=== PATIENT | female | born 1955 | race American Indian/Alaskan Native ===

== ENCOUNTER 2017-04-17 07:49 | Outpatient (CLI) | payer MEDICARE ==
[2017-04-17] MEDS ORDERED: PROVENTIL IH ONE (08:02)
[2017-04-17 09:13] LABS: ISTAT Base Excess -2; ISTAT DEVICE 0; ISTAT HCO3 22.6; ISTAT PCO2 36.7 (35-45); ISTAT PH 7.397 (7.35-7.45); ISTAT PO2 69 (80-105); ISTAT SO2 93; ISTAT TCO2 24
--- NOTE | 2017-04-19 06:23 | Pulmonary Function Test ---
FVC of 1.86 L or 75%, FEV1 of 0.86 L or ____ ratio of 46%. F25/75 of 0.32 L per second or ____ of predicted. MVV of 43% of predicted. Post bronchodilator therapy now statistically significant response. Flow vital capacity 71%, total capacity 97% with a residual volume of 138% of predicted. Diffusion capacity of 32%. RAW of 300%. INTERPRETATION: Severe restrictive ventricular defect without any response to bronchodilator therapy. There is evidence of airtrapping and loss of functioning alveolar unit, evidence of reactive airways disease. Clinical correlation is suggested. JOB# [id number] BRYAN/AYDE
== END 2017-04-17 07:50 | disposition home or self-care (01) ==
LOC: PF 07:49
PROVIDERS: ATTEND Internal Medicine
DX: J44.9 Chronic obstructive pulmonary disease, unspecified (principal); F17.200 Nicotine dependence, unspecified, uncomplicated
CPT/HCPCS: 36600; 82803; 94060; 94640; 94726; 94729

== ENCOUNTER 2019-06-21 14:50 | Emergency (ER) | payer MEDICARE ==
[2019-06-21] MEDS ORDERED: PROVENTIL IH ONE ×2 (14:57→15:45)
[2019-06-21] MEDS ORDERED: SOLU-Medrol IV ONE (14:58)
--- NOTE | 2019-06-21 14:59 | Event Note ---
ED Screening Note ED Screening Note: known copd sob wheezing difficulty speaking sat 92 no home o2 no fever or chills rn relief charge aware This initial assessment/diagnostic orders/clinical plan/treatment(s) is/are subject to change based on patients health status, clinical progression and re- assessment by fellow clinical providers in the ED. Further treatment and workup at subsequent clinical providers discretion. Patient/guardian urged not to elope from the ED as their condition may be serious if not clinically assessed and managed. Initial orders include: duoneb/solumedrol xray labs
[2019-06-21 15:13] LABS: Hemoglobin 13.4 gm/dl (10.1-14.3); Mean Corpuscular HGB Conc 33 % (30-34); Mean Corpuscular Volume 81 fl (79-97); Platelet Count 317 K/mm3 (140-440); Red Blood Count 4.92 M/mm3 (3.65-5.03); Red Cell Distribution Width 14.4 % (13.2-15.2)
--- NOTE | 2019-06-21 15:26 | XRay Report ---
CHEST 2 VIEWS INDICATION: Shortness of breath. COMPARISON: FINDINGS: Support devices: None. Heart: Within normal limits. Lungs/pleura: The lungs are hyperinflated. No evidence for infiltrate, mass or pleural effusion. No pneumothorax. Additional findings: None. IMPRESSION: Emphysematous changes. Signer Name: Quinton Melgoza Jr, MD Signed: 06/21/2019 3:22 PM Workstation Name: [id number]
[2019-06-21 15:27] LABS: Alanine Aminotransferase 10 units/L (7-56); Albumin 4.2 g/dL (3.9-5); BUN/Creatinine Ratio 11; Blood Urea Nitrogen 8 mg/dL (7-17); Calcium 9.9 mg/dL (8.4-10.2); Hemolysis Index 7
[2019-06-21] MEDS ORDERED: ATIVAN ONE (15:36)
--- NOTE | 2019-06-21 15:59 | Emergency Department Report ---
Minor Respiratory - HPI Chief Complaint: Dyspnea/Respdistress Stated Complaint: AKOSUA Time Seen by Provider: 06/21/19 14:57 Duration: 3 Days Pain Location: Chest Severity: moderate Minor Respiratory: Yes Able to Tolerate Fluids, Yes Cough, Yes Shortness of Breath, No Rhinorrhea, No Sore Throat, No Ear Pain, No Sick Contacts, No Hemoptysis, No Chest Pain, No Fever Other History: 63 yo with known copd to ER with wheezing. no cp just "tight" with breathing. endorses using her meds at home. no fever or chills. no purulment sputum ED Review of Systems ROS: Stated complaint: AKOSUA Other details as noted in HPI Comment: All other systems reviewed and negative ED Past Medical Hx - Past Medical History Previous Medical History?: Yes Hx Hypertension: (BORDERLINE) Hx Congestive Heart Failure: Yes Hx Diabetes: ("MEDICATION INDUCED AT TIMES") Hx Asthma: Yes Hx COPD: Yes - Surgical History Past Surgical History?: Yes Additional Surgical History: THYROID CYST REMOVED. TUBAL LIGATION - Social History Smoking Status: Current Every Day Smoker Substance Use Type: None - Medications Home Medications: Home Medications Medication Instructions Recorded Confirmed Last Taken Type Amlodipine Besylate [Norvasc] 5 mg PO DAILY 06/12/15 06/12/15 Unknown History Citalopram Hydrobromide [celeXA] 20 mg PO QDAY 06/12/15 06/12/15 Unknown History Ipratropium [Atrovent NEB] 0.5 mg IH Q4HR 06/12/15 06/12/15 Unknown History Montelukast Sodium [Singulair] 10 mg PO QDAY 06/12/15 06/12/15 Unknown History Quinapril HCl 10 mg PO QDAY 06/12/15 06/12/15 Unknown History Quinapril(Nf) [Accupril (Nf)] 5 mg PO QDAY 06/12/15 06/12/15 Unknown History Simvastatin (Nf) [Zocor TAB] 20 mg PO QHS 06/12/15 06/12/15 Unknown History ALBUTEROL Inhaler (OR & NICU) 2 puff IH QID PRN #1 inhalation 06/21/19 Unknown Rx [ProAir HFA Inhaler] Cetirizine HCl [ZyrTEC] 10 mg PO DAILY #30 capsule 06/21/19 Unknown Rx Fluticasone [Flonase] 1 spray NS QDAY #1 bottle 06/21/19 Unknown Rx predniSONE [Deltasone] 50 mg PO QDAY #5 tab 06/21/19 Unknown Rx Minor Respiratory Exam - Exam General: Vital signs noted. No distress. Alert and acting appropriately. HEENT: Yes Moist Mucous Membranes, No Pharyngeal Erythema, No Pharyngeal Exudates, No Rhinorrhea, No Conjuctival Injection, No Frontal Tenderness, No Maxillary Tenderness Ear: Neither TM Bulge, Neither TM Erythema, Neither EAC Pain, Neither EAC Dis charge Neck: Yes Supple, No Adenopathy Lungs: Yes Wheezes, Yes Cough, No Good Air Exchange, No Ronchi, No Stridor, No Labored Respirations, No Retractions, No Use of Accessory Muscles, No Other Abnormal Lung Sounds Heart: Yes Regular, No Murmur Abdomen: Yes Normal Bowel Sounds, No Tenderness, No Peritoneal Signs Skin: No Rash, No Edema Neurologic: Alert and oriented, no deficits. Musculoskeletal: Unremarkable. ED Medical Decision Making - Lab Data Result diagrams: 06/21/19 15:02 06/21/19 15:02 - Radiology Data Radiology results: report reviewed, image reviewed - Medical Decision Making duoneb x 2 and much improved solumedrol IV xray neg for consolidation pt reports feeling better p meds. ambulatory without sob on dc. dc home w dc plan of care- will see pcp on Monday to be sure she is getting better. - Differential Diagnosis copd ae w or wo infection Critical care attestation.: If time is entered above; I have spent that time in minutes in the direct care of this critically ill patient, excluding procedure time. ED Disposition Clinical Impression: COPD with acute exacerbation, Emphysema lung Disposition: DC- TO HOME OR SELFCARE Is pt being admited?: No Does the pt Need Aspirin: No Condition: Stable Instructions: Chronic Obstructive Pulmonary Disease (ED) Additional Instructions: continue home meds meds as ordered today hydrate well follow up with pcp Monday to be sure you are getting better Prescriptions: predniSONE [Deltasone] 50 mg PO QDAY #5 tab Fluticasone [Flonase] 1 spray NS QDAY #1 bottle ALBUTEROL Inhaler (OR & NICU) [ProAir HFA Inhaler] 2 puff IH QID PRN #1 i nhalation PRN Reason: Shortness Of Breath Cetirizine HCl [ZyrTEC] 10 mg PO DAILY #30 capsule Referrals: [facility] [Outside] - 3-5 Days Time of Disposition: 16:01
[2019-06-21 16:24] VITALS: BP 124/75
== END 2019-06-21 16:44 | disposition home or self-care (01) ==
LOC: ED 14:50
DX: J43.9 Emphysema, unspecified (principal); I50.9 Heart failure, unspecified; F17.200 Nicotine dependence, unspecified, uncomplicated; Z98.51 Tubal ligation status; Z98.890 Other specified postprocedural states; Z79.899 Other long term (current) drug therapy
CPT/HCPCS: 36415; 71046; 80053; 85027; 94640; 96374; 99284; J2930; J2060

== ENCOUNTER 2019-12-12 14:18 | Inpatient (IN) | payer MEDICARE ==
--- NOTE | 2019-12-12 14:45 | Emergency Department Report ---
Blank Doc - Documentation Documentation: 64-year-old female SOB, CP, and cough. This initial assessment/diagnostic orders/clinical plan/treatment(s) is/are subject to change based on patients health status, clinical progression and re- assessment by fellow clinical providers in the ED. Further treatment and workup at subsequent clinical providers discretion. Patient/guardian urged not to elope from the ED as their condition may be serious if not clinically assessed and managed. Initial orders include: cardiac protocol Main side
[2019-12-12] MEDS ORDERED: ALBUTEROL 2.5 MG/3 ML NEBU IH ONE (15:22)
[2019-12-12] MEDS ORDERED: methylPREDNISolone Sod Succinate 125 MG/2 ML INJ IV ONE (15:23)
[2019-12-12] MEDS ORDERED: BENZONATATE 100 MG CAP PO ONE (15:23)
[2019-12-12] MEDS ORDERED: MAGNESIUM SULFATE 2 GM/50 ML BAG IV ONE (15:23)
[2019-12-12] MEDS ORDERED: IPRATROPIUM 0.02% NEBU 2.5 ML IH ONE (15:23)
--- NOTE | 2019-12-12 15:28 | Emergency Department Report ---
ED Shortness of Breath HPI - General Chief Complaint: Dyspnea/Respdistress Stated Complaint: AKOSUA Time Seen by Provider: 12/12/19 14:44 Source: patient, old records reviewed Mode of arrival: Wheelchair Limitations: No Limitations - History of Present Illness Initial Comments: Patient and 64-year-old female the past medical history COPD not on home oxygen, CHF, borderline diabetes, hypertension, history of 3 previous intubations presents to the hospital complaining of wheezing, shortness of breath, cough, fever since last night. Patient reports a fever 102.4 prior to arrival. Cough productive of yellow sputum. Wheezing not improved with home treatment. Patient continues to smoke. She denies calf tenderness, leg edema, or recent travel. Patient did receive a flu shot but is unsure where she received a pneumonia shot. PMD: Dr. Eric - Related Data Home Medications Medication Instructions Recorded Confirmed Last Taken Amlodipine Besylate [Norvasc] 5 mg PO DAILY 06/12/15 06/12/15 Unknown Citalopram Hydrobromide [celeXA] 20 mg PO QDAY 06/12/15 06/12/15 Unknown Ipratropium [Atrovent NEB] 0.5 mg IH Q4HR 06/12/15 06/12/15 Unknown Montelukast Sodium [Singulair] 10 mg PO QDAY 06/12/15 06/12/15 Unknown Quinapril HCl 10 mg PO QDAY 06/12/15 06/12/15 Unknown Quinapril(Nf) [Accupril (Nf)] 5 mg PO QDAY 06/12/15 06/12/15 Unknown Simvastatin (Nf) [Zocor TAB] 20 mg PO QHS 06/12/15 06/12/15 Unknown Previous Rx's Medication Instructions Recorded Last Taken Type Albuterol INH(or & Nicu Only) 2 puff IH QID PRN #1 inhalation 06/21/19 Unknown Rx [ProAir HFA Inhaler] Cetirizine HCl [ZyrTEC] 10 mg PO DAILY #30 capsule 06/21/19 Unknown Rx Fluticasone [Flonase] 1 spray NS QDAY #1 bottle 06/21/19 Unknown Rx predniSONE [Deltasone] 50 mg PO QDAY #5 tab 06/21/19 Unknown Rx Allergies Allergy/AdvReac Type Severity Reaction Status Date / Time No Known Allergies Allergy Verified 06/12/15 16:48 ED Review of Systems ROS: Stated complaint: AKOSUA Other details as noted in HPI Comment: All other systems reviewed and negative ED Past Medical Hx - Past Medical History Hx Hypertension: (BORDERLINE) Hx Congestive Heart Failure: Yes Hx Diabetes: ("MEDICATION INDUCED AT TIMES") Hx Asthma: Yes Hx COPD: Yes - Surgical History Additional Surgical History: THYROID CYST REMOVED. TUBAL LIGATION - Social History Smoking Status: Current Every Day Smoker Substance Use Type: None - Medications Home Medications: Home Medications Medication Instructions Recorded Confirmed Last Taken Type Amlodipine Besylate [Norvasc] 5 mg PO DAILY 06/12/15 06/12/15 Unknown History Citalopram Hydrobromide [celeXA] 20 mg PO QDAY 06/12/15 06/12/15 Unknown History Ipratropium [Atrovent NEB] 0.5 mg IH Q4HR 06/12/15 06/12/15 Unknown History Montelukast Sodium [Singulair] 10 mg PO QDAY 06/12/15 06/12/15 Unknown History Quinapril HCl 10 mg PO QDAY 06/12/15 06/12/15 Unknown History Quinapril(Nf) [Accupril (Nf)] 5 mg PO QDAY 06/12/15 06/12/15 Unknown History Simvastatin (Nf) [Zocor TAB] 20 mg PO QHS 06/12/15 06/12/15 Unknown History Albuterol INH(or & Nicu Only) 2 puff IH QID PRN #1 inhalation 06/21/19 Unknown Rx [ProAir HFA Inhaler] Cetirizine HCl [ZyrTEC] 10 mg PO DAILY #30 capsule 06/21/19 Unknown Rx Fluticasone [Flonase] 1 spray NS QDAY #1 bottle 06/21/19 Unknown Rx predniSONE [Deltasone] 50 mg PO QDAY #5 tab 06/21/19 Unknown Rx ED Physical Exam - General Limitations: No Limitations - Other Other exam information: General: No acute distress Head: Atraumatic Eyes: normal appearance ENT: Moist mucous membranes Neck: Normal appearance, no midline tenderness Chest: C diminished bilateral breath sounds with wheezing CV: Regular rate and rhythm Abdomen: Soft, normal bowel sounds, nontender, nondistended, no rebound or guarding Back: Normal inspection Extremity: Normal inspection, full range of motion, no calf tenderness or leg edema Neuro: Alert O x 3, no facial asymmetry, speech clear, no gross motor sensory deficit Psych: Appropriate behavior Skin: No rash ED Course Vital Signs 12/12/19 12/12/19 12/12/19 14:43 15:30 15:36 Temperature 99.7 F H Pulse Rate 103 H 101 H Pulse Rate [ 110 H Anterior Bilateral Throughout] Respiratory 22 21 Rate Respiratory 26 H Rate [Anterior Bilateral Throughout] Blood Pressure 124/73 Blood Pressure [Left] O2 Sat by Pulse 94 92 Oximetry 12/12/19 12/12/19 15:55 15:56 Temperature Pulse Rate 102 H Pulse Rate [ Anterior Bilateral Throughout] Respiratory 18 17 Rate Respiratory Rate [Anterior Bilateral Throughout] Blood Pressure Blood Pressure 116/61 [Left] O2 Sat by Pulse 93 Oximetry - Reevaluation(s) Reevaluation #1: 12/12/19 17:10 pt reports feeling better after meds. Patient is still tachypneic and has a room air saturation 87 to 88%. At this point patient would like need admission however w awaiting blood draw since initial chemistries were hemolyzed. 12/12/19 17:43 repeat blood has been drawn, delay in results not due to chemistry machine issues ED Medical Decision Making - Lab Data Result diagrams: 12/12/19 15:49 12/12/19 17:20 Lab Results 12/12/19 12/12/19 12/12/19 Range/Units 15:49 15:49 15:49 WBC 6.0 (4.5-11.0) K/mm3 RBC 4.54 (3.65-5.03) M/mm3 Hgb 12.1 (10.1-14.3) gm/dl Hct 36.9 (30.3-42.9) % MCV 81 (79-97) fl MCH 27 L (28-32) pg MCHC 33 (30-34) % RDW 15.4 H (13.2-15.2) % Plt Count 319 (140-440) K/mm3 Lymph % (Auto) 9.7 L (13.4-35.0) % [place] % (Auto) 6.0 (0.0-7.3) % Eos % (Auto) 0.5 (0.0-4.3) % Baso % (Auto) 0.7 (0.0-1.8) % Lymph # 0.6 L (1.2-5.4) K/mm3 [place] # 0.4 (0.0-0.8) K/mm3 Eos # 0.0 (0.0-0.4) K/mm3 Baso # 0.0 (0.0-0.1) K/mm3 Seg Neutrophils % 83.1 H (40.0-70.0) % Seg Neutrophils # 5.0 (1.8-7.7) K/mm3 PT 13.3 (12.2-14.9) Sec. INR 1.00 (0.87-1.13) APTT 28.6 (24.2-36.6) Sec. Sodium TNR Potassium TNR Chloride TNR Carbon Dioxide TNR Anion Gap TNR BUN TNR Creatinine TNR Estimated GFR TNR BUN/Creatinine Ratio TNR Glucose TNR Calcium TNR Total Bilirubin TNR AST TNR ALT TNR Alkaline Phosphatase TNR Troponin T TNR NT-Pro-B Natriuret Pep TNR Total Protein TNR Albumin TNR Albumin/Globulin Ratio TNR 12/12/19 Range/Units 17:20 WBC (4.5-11.0) K/mm3 RBC (3.65-5.03) M/mm3 Hgb (10.1-14.3) gm/dl Hct (30.3-42.9) % MCV (79-97) fl MCH (28-32) pg MCHC (30-34) % RDW (13.2-15.2) % Plt Count (140-440) K/mm3 Lymph % (Auto) (13.4-35.0) % [place] % (Auto) (0.0-7.3) % Eos % (Auto) (0.0-4.3) % Baso % (Auto) (0.0-1.8) % Lymph # (1.2-5.4) K/mm3 [place] # (0.0-0.8) K/mm3 Eos # (0.0-0.4) K/mm3 Baso # (0.0-0.1) K/mm3 Seg Neutrophils % (40.0-70.0) % Seg Neutrophils # (1.8-7.7) K/mm3 PT (12.2-14.9) Sec. INR (0.87-1.13) APTT (24.2-36.6) Sec. Sodium 139 Potassium 3.5 L Chloride 104.2 Carbon Dioxide 19 L Anion Gap 19 BUN 7 Creatinine 0.8 Estimated GFR > 60 BUN/Creatinine Ratio 9 Glucose 144 H Calcium 9.4 Total Bilirubin 0.20 AST 18 ALT 16 Alkaline Phosphatase 108 Troponin T < 0.010 NT-Pro-B Natriuret Pep 39.88 Total Protein 7.2 Albumin 3.9 Albumin/Globulin Ratio 1.2 - EKG Data -: EKG Interpreted by Ct EKG shows normal: sinus rhythm, ST-T waves (no stemi) Rate: tachycardia (102) - Radiology Data Radiology results: report reviewed CHEST 2 VIEWS INDICATION: Chest Pain. COMPARISON: 06/21/2019 FINDINGS: Support devices: None. Heart: Within normal limits. Pulmonary vasculature: Normal. Lungs/pleura: New wedge-shaped opacity with air bronchograms at the right heart border on the frontal view. The lungs are otherwise clear. No pleural effusion. No pneumothorax. Additional findings: None. IMPRESSION: 1. Right middle lobe pneumonia. - Medical Decision Making + pneumonia, pt received Rocephin and azithromycin Patient hypoxic after 1 hour continuous with a room air saturation 87 to 88%. There is some mild improvement in respiratory distress. Pt will be admitted for further treatment - Differential Diagnosis pneumonia, bronchitis, COPD, asthma Critical Care Time: No Critical care attestation.: If time is entered above; I have spent that time in minutes in the direct care of this critically ill patient, excluding procedure time. ED Disposition Clinical Impression: Right middle lobe pneumonia, COPD exacerbation, Hypoxia Disposition: OP ADMIT IP TO THIS HOSP Is pt being admited?: Yes Condition: Stable Time of Disposition: 18:10 (Dr Thornton/hosp)
--- NOTE | 2019-12-12 15:35 | XRay Report ---
CHEST 2 VIEWS INDICATION: Chest Pain. COMPARISON: 06/21/2019 FINDINGS: Support devices: None. Heart: Within normal limits. Pulmonary vasculature: Normal. Lungs/pleura: New wedge-shaped opacity with air bronchograms at the right heart border on the frontal view. The lungs are otherwise clear. No pleural effusion. No pneumothorax. Additional findings: None. IMPRESSION: 1. Right middle lobe pneumonia. Signer Name: Dudley Fowler MD Signed: 12/12/2019 3:30 PM Workstation Name: [id number]
[2019-12-12] MEDS ORDERED: cefTRIAXone/NS 1 GM/50 ML 1 GM/50 ML BAG IV ONE (15:38)
[2019-12-12] MEDS ORDERED: AZITHROMYCIN 500 MG in SODIUM CHLORIDE 0.9% 250ML 250 ML IV ONE (16:00)
[2019-12-12 16:21] LABS: Basophils % (Auto) 0.7 % (0.0-1.8); Eosinophils % (Auto) 0.5 % (0.0-4.3); Hematocrit 36.9 % (30.3-42.9); Hemoglobin 12.1 gm/dl (10.1-14.3); Lymphocytes # (Auto) 0.6 K/mm3 (1.2-5.4); Lymphocytes % (Auto) 9.7 % (13.4-35.0); Mean Corpuscular HGB Conc 33 % (30-34); Mean Corpuscular Volume 81 fl (79-97); Monocytes # (Auto) 0.4 K/mm3 (0.0-0.8); Platelet Count 319 K/mm3 (140-440); Red Blood Count 4.54 M/mm3 (3.65-5.03); Red Cell Distribution Width 15.4 % (13.2-15.2)
[2019-12-12 16:32] LABS: Partial Thromboplastin Time 28.6 Sec. (24.2-36.6)
[2019-12-12 16:48] LABS: BUN/Creatinine Ratio TNR; Blood Urea Nitrogen TNR mg/dL (7-17)
[2019-12-12 16:49] LABS: Alanine Aminotransferase TNR units/L (7-56); Calcium TNR mg/dL (8.4-10.2)
[2019-12-12 16:50] LABS: Albumin TNR g/dL (3.9-5); Hemolysis Index TNR
[2019-12-12 17:59] LABS: Alanine Aminotransferase 16 units/L (7-56); Albumin 3.9 g/dL (3.9-5); BUN/Creatinine Ratio 9; Blood Urea Nitrogen 7 mg/dL (7-17); Calcium 9.4 mg/dL (8.4-10.2); Hemolysis Index 5
[2019-12-12] MEDS ORDERED: ACETAMINOPHEN 325 MG TAB PO PRN (18:23)
[2019-12-12] MEDS ORDERED: ONDANSETRON 4 MG/2 ML INJ IV PRN (18:23)
--- NOTE | 2019-12-12 18:23 | History and Physical Report ---
History of Present Illness Chief complaint: It is difficult for me to breathe History of present illness: 64 YO Female with COPD, HTN, CHF, DM, HLD, Asthma, Nicotine Dependence presents to ED for evaluation. Patient states that she has experienced shortness of breath, productive cough with yellow sputum, fever to 102.4, generalized weakness over the past 3 days with progressively worsening symptoms over the past 1 day. Patient acknowledges increased nebulizer use without relief. Patient transported to [facility] via private vehicle. Patient seen and evaluated in the emergency department upon arrival. Lab and imaging studies reviewed. Patient underwent chest x-ray and found to have right middle lobe pneumonia. Patient found to be using accessory muscles to breathe and with increased work of breathing. Patient on unable to speak in complete sentences due to shortness of breath. Patient treated with nebulizer therapy and supplemental oxygen with mild improvement. Patient admitted to [facility] unit for medical stabilization due to high risk for pulmonary decompensation. Patient initiated on pneumonia protoco l. Advanced care planning conducted in ED. Past History Past Medical History: COPD, diabetes, heart failure, hypertension, other (See HPI) Past Surgical History: Other (Thyroid cyst surgery, tubal ligation.) Social history: , lives with family, smoking. denies: alcohol abuse, prescription drug abuse, IV drug use Family history: hypertension Medications and Allergies Allergies Allergy/AdvReac Type Severity Reaction Status Date / Time No Known Allergies Allergy Verified 06/12/15 16:48 Home Medications Medication Instructions Recorded Confirmed Last Taken Type Amlodipine Besylate [Norvasc] 10 mg PO QDAY 12/12/19 12/12/19 Unknown History Aspirin [Aspirin BABY CHEW TAB] 81 mg PO QDAY 12/12/19 12/12/19 Unknown History AtorvaSTATin [Lipitor] 20 mg PO QHS 12/12/19 12/12/19 Unknown History Citalopram [celeXA] 20 mg PO QDAY 12/12/19 12/12/19 Unknown History Fluticasone/Vilanterol [Breo 1 each IH QDAY 12/12/19 12/12/19 Unknown History Ellipta 200-25 Mcg INH] Review of Systems Constitutional: fever, weakness, malaise, no weight loss, no weight gain, no chills Ears, nose, mouth and throat: no tinnitis, no nasal congestion, no nasal discharge Breasts: no change in shape Cardiovascular: no chest pain, no orthopnea, no palpitations, no rapid/irregular heart beat Respiratory: cough, cough with sputum, excessive sputum, shortness of breath Gastrointestinal: no abdominal pain, no nausea, no vomiting, no constipation, no change in bowel habits, no hematemesis Genitourinary Female: no pelvic pain, no flank pain, no menorrhagia, no dysuria, no urgency, no stress incontinence, no post void dribbling, no incomplete emptying Rectal: no pain, no incontinence, no bleeding Musculoskeletal: no neck stiffness, no neck pain, no arm numbness/tingling, no low back pain, no shooting leg pain Integumentary: no rash, no pruritis, no redness Neurological: no weakness, no parathesias, no numbness, no tingling, no seizures Psychiatric: no anxiety, no memory loss, no sleep disturbances, no hypersomnia, no change in libido, no suicidal ideation Endocrine: no cold intolerance, no heat intolerance, no polyphagia, no excessive thirst, no polyuria, no excessive sweating, no flushing Hematologic/Lymphatic: no easy bruising, no easy bleeding, no lymphadenopathy Allergic/Immunologic: no urticaria, no allergic rhinitis, no persistent infections, no anaphylaxis Exam - Constitutional Vitals: Temp Pulse Resp BP Pulse Ox 99.7 F H 102 H 17 116/61 93 12/12/19 14:43 12/12/19 15:56 12/12/19 15:56 12/12/19 15:56 12/12/19 15:56 General appearance: Present: mild distress, cachectic - EENT Eyes: Present: PERRL ENT: hearing intact, clear oral mucosa - Neck Neck: Present: supple, normal ROM - Respiratory Respiratory effort: labored, accessory muscle use, stridor Respiratory: right: diminished - Cardiovascular Heart Sounds: Present: S1 & S2. Absent: rub, click - Extremities Extremities: pulses symmetrical, No edema Peripheral Pulses: within normal limits - Abdominal General gastrointestinal: Present: soft, non-tender, non-distended, normal bowel sounds Female genitourinary: Present: normal - Integumentary Integumentary: Present: clear, warm, dry - Musculoskeletal Musculoskeletal: gait normal, strength equal bilaterally - Psychiatric Psychiatric: appropriate mood/affect, intact judgment & insight - Neurologic Neurologic: CNII-XII intact, moves all extremities Results - Labs CBC & Chem 7: 12/12/19 15:49 12/12/19 17:20 Labs: Abnormal lab results 12/12/19 12/12/19 Range/Units 15:49 17:20 MCH 27 L (28-32) pg RDW 15.4 H (13.2-15.2) % Lymph % (Auto) 9.7 L (13.4-35.0) % Lymph # 0.6 L (1.2-5.4) K/mm3 Seg Neutrophils % 83.1 H (40.0-70.0) % Potassium 3.5 L (3.6-5.0) mmol/L Carbon Dioxide 19 L (22-30) mmol/L Glucose 144 H (65-100) mg/dL Assessment and Plan - Patient Problems (1) Right middle lobe pneumonia Current Visit: Yes Status: Acute Plan to address problem: Pneumonia protocol: CBC, CMP, chest x-ray, IV antibiotic therapy, blood culture, nebulizer therapy, submental oxygen, pulse oximetry. (2) Acute hypoxemic respiratory failure Current Visit: Yes Status: Acute Plan to address problem: Submental oxygen, nebulizer therapy, d-dimer, chest x-ray, CT angios chest, pulse oximetry, noninvasive positive pressure ventilation as clinically indicated. (3) Acidosis Current Visit: Yes Status: Acute Plan to address problem: IV fluid resuscitation therapy, repeat BMP in a.m. (4) Hypertension Current Visit: Yes Status: Acute Qualifiers: Hypertension type: essential hypertension Qualified Code(s): I10 - Essential (primary) hypertension Plan to address problem: Monitor blood pressure every shift, continue medical management. (5) CHF (congestive heart failure) Current Visit: Yes Status: Acute Qualifiers: Heart failure type: systolic Heart failure chronicity: chronic Qualified Code(s): I50.22 - Chronic systolic (congestive) heart failure Plan to address problem: Strict I's/O, daily weight, BNP, submental oxygen, pulse oximetry, afterload reduction, supportive care. (6) Diabetes Current Visit: Yes Status: Acute Plan to address problem: Consistent carbohydrate diet, sliding scale insulin therapy, Accu-Chek, hypoglycemia protocol. (7) COPD exacerbation Current Visit: Yes Status: Acute Plan to address problem: Submental oxygen, nebulizer therapy, pulse oximetry, noninvasive positive pressure ventilation as clinically indicated, IV antibiotic therapy, IV steroid therapy. (8) DVT prophylaxis Current Visit: Yes Status: Acute Plan to address problem: SCD to bilateral lower extremities while in bed, prophylactic heparin (9) Advance care planning Current Visit: Yes Status: Acute Plan to address problem: Patient is full code, disease education conducted, patient knowledges understanding and agreement with care plan. +30 minutes.
[2019-12-12] MEDS ORDERED: NON-FORMULARY EACH (Simvastatin (Nf) 20 MG) PO SCH (22:00)
--- NOTE | 2019-12-12 22:40 | Cat Scan Report ---
CTA chest with contrast INDICATION : Dyspnea. TECHNIQUE: Axial imaging performed through the chest, with contrast bolus timing set to maximize opa cification of the pulmonary arteries. 3-plane MIP reformatted images were obtained. All CT scans at this location are performed using CT dose reduction for ALARA by means of automated exposure control. 100 mL of intravenous contrast administered. COMPARISON: None FINDINGS: Bolus: Contrast bolus timing is adequate. PTE: No filling defect is present to suggest PTE. Mediastinum: Heart and great vessels appear normal. No pathologic mediastinal adenopathy. Lungs: There is right middle lobe atelectasis and mild emphysema. No consolidation or effusion. Upper abdomen: Limited imaging of the upper abdomen shows nothing acute. Bones: Degenerative changes in the spine with nothing acute. IMPRESSION: 1. Negative for PTE. 2. Right middle lobe atelectasis and mild emphysema. No central obstructive mass or adenopathy identi fied to account for atelectasis. Signer Name: Ilya Swift MD Signed: 12/12/2019 10:36 PM Workstation Name: [id number]
[2019-12-12] MEDS: PRAVASTATIN 40 MG TAB PO SCH (23:00)
[2019-12-12] MEDS: MONTELUKAST 10 MG TAB PO SCH (23:31)
[2019-12-13] MEDS: ALBUTEROL 2.5 MG/3 ML NEBU IH PRN (03:12)
[2019-12-13] MEDS: HEPARIN 5,000 UNIT/1 ML VIAL SUB-Q SCH ×3 (03:32→21:41)
[2019-12-13 06:07] LABS: Basophils % (Auto) 0.2 % (0.0-1.8); Hematocrit 35.3 % (30.3-42.9); Hemoglobin 11.5 gm/dl (10.1-14.3); Lymphocytes # (Auto) 0.6 K/mm3 (1.2-5.4); Lymphocytes % (Auto) 14.4 % (13.4-35.0); Mean Corpuscular HGB Conc 33 % (30-34); Mean Corpuscular Volume 81 fl (79-97); Monocytes # (Auto) 0.1 K/mm3 (0.0-0.8); Monocytes % (Auto) 2.7 % (0.0-7.3); Platelet Count 277 K/mm3 (140-440); Red Blood Count 4.36 M/mm3 (3.65-5.03); Red Cell Distribution Width 15.4 % (13.2-15.2)
[2019-12-13 06:32] LABS: Alanine Aminotransferase 18 units/L (7-56); BUN/Creatinine Ratio 20; Blood Urea Nitrogen 12 mg/dL (7-17); Calcium 9.5 mg/dL (8.4-10.2); Hemolysis Index 4
--- NOTE | 2019-12-13 08:50 | Progress Note ---
Assessment and Plan Assessment and plan: Patient is a 64 yo woman with a history of COPD, HTN, CHF, DM, HLD, Asthma and Nicotine Dependence who presents to ED for evaluation. Patient states that she has experienced shortness of breath, productive cough with yellow sputum, fever to 102.4, generalized weakness over the past 3 days with progressively worsening symptoms over the past 1 day. Patient acknowledges increased nebulizer use without relief. Patient transported to [facility] via private vehicle. Patient seen and evaluated in the emergency department upon arrival. Lab and imaging studies reviewed. Patient underwent chest x-ray and found to have right middle lobe pneumonia. Patient found to be using accessory muscles to breathe and with increased work of breathing. Patient on unable to speak in complete sentences due to shortness of breath. Patient treated with nebulizer therapy and supplemental oxygen with mild improvement. Patient admitted to [facility] unit for medical stabilization due to high risk for pulmonary decompensation. Patient initiated on pneumonia protocol. Advanced care planning conducted in ED. * CTA chest IMPRESSION: 1. Negative for PTE. 2. Right middle lobe atelectasis and mild emphysema. No central obstructive mass or adenopathy identified to account for atelectasis. (1) Right middle lobe pneumonia, aspiration type Current Visit: Yes Status: Acute Plan to address problem: Pneumonia protocol: CBC, CMP, chest x-ray, IV antibiotic therapy, blood culture, nebulizer therapy, submental oxygen, pulse oximetry. (2) Acute hypoxemic respiratory failure Current Visit: Yes Status: Acute Plan to address problem: Submental oxygen, nebulizer therapy, d-dimer, chest x-ray, CT angios chest, pulse oximetry, noninvasive positive pressure ventilation as clinically indicated. (3) Acidosis Current Visit: Yes Status: Acute Plan to address problem: IV fluid resuscitation therapy, repeat BMP in a.m. (4) Hypertension Current Visit: Yes Status: Acute Qualifiers: Hypertension type: essential hypertension Qualified Code(s): I10 - Essential (primary) hypertension Plan to address problem: Monitor blood pressure every shift, continue medical management. (5) CHF (congestive heart failure) Current Visit: Yes Status: Acute Qualifiers: Heart failure type: systolic Heart failure chronicity: chronic Qualified Code(s): I50.22 - Chronic systolic (congestive) heart failure Plan to address problem: Strict I's/O, daily weight, BNP, submental oxygen, pulse oximetry, afterload reduction, supportive care. (6) Diabetes Current Visit: Yes Status: Acute Plan to address problem: Consistent carbohydrate diet, sliding scale insulin therapy, Accu-Chek, hypoglycemia protocol. (7) COPD exacerbation Current Visit: Yes Status: Acute Plan to address problem: Submental oxygen, nebulizer therapy, pulse oximetry, noninvasive positive pressure ventilation as clinically indicated, IV antibiotic therapy, IV steroid therapy. (8) DVT prophylaxis Current Visit: Yes Status: Acute Plan to address problem: SCD to bilateral lower extremities while in bed, prophylactic heparin (9) Advance care planning Current Visit: Yes Status: Acute Plan to address problem: Patient is full code, disease education conducted, patient knowledges understanding and agreement with care plan. +30 minutes. History Interval history: Patient was seen and examined. Follow-up on current diagnosis of RML pneumonia. Overnight uneventful as no events directly reported to me. Patient denies any chest pain, nausea/vomiting or severe headaches. Imaging, nursing note, chart, labs and old chart reviewed. Discussed with patient. Hospitalist Physical - Physical exam Narrative exam: Gen: WDWN, NAD, Awake, Alert, Orientated HEENT: NCAT, EOMI, PERRL, OP Clear Neck: supple, no adenopathy, no thyromegaly, no JVD CVS/Heart: RRR, normal S1S2, pulses present bilaterally Chest/Lungs: coarse and diminished bs bilaterally, Symmetrical chest expansion, good air entry bilaterally GI/Abdomen: soft, NTND, good bowel sounds, no guarding or rebound /Bladder: no suprapubic tenderness, no CVA or paraspinal tenderness Extermity/Skin: no c/c/e, no obvious rash MSK: FROM x 4 Neuro: CN 2-12 grossly intact, no new focal deficits Psych: calm - Constitutional Vitals: Temp Pulse Resp BP Pulse Ox 99.4 F 80 20 124/73 97 12/13/19 08:09 12/13/19 08:09 12/13/19 08:09 12/13/19 08:09 12/13/19 08:10 General appearance: Present: cachectic. Absent: mild distress Results - Labs CBC & Chem 7: 12/13/19 05:26 12/13/19 05:26 Labs: Laboratory Last Values WBC 4.0 K/mm3 (4.5-11.0) L 12/13/19 05:26 RBC 4.36 M/mm3 (3.65-5.03) 12/13/19 05:26 Hgb 11.5 gm/dl (10.1-14.3) 12/13/19 05:26 Hct 35.3 % (30.3-42.9) 12/13/19 05:26 MCV 81 fl (79-97) 12/13/19 05:26 MCH 26 pg (28-32) L 12/13/19 05:26 MCHC 33 % (30-34) 12/13/19 05:26 RDW 15.4 % (13.2-15.2) H 12/13/19 05:26 Plt Count 277 K/mm3 (140-440) 12/13/19 05:26 Lymph % (Auto) 14.4 % (13.4-35.0) 12/13/19 05:26 Barren % (Auto) 2.7 % (0.0-7.3) 12/13/19 05:26 Eos % (Auto) 0.0 % (0.0-4.3) 12/13/19 05:26 Baso % (Auto) 0.2 % (0.0-1.8) 12/13/19 05:26 Lymph # 0.6 K/mm3 (1.2-5.4) L 12/13/19 05:26 Barren # 0.1 K/mm3 (0.0-0.8) 12/13/19 05:26 Eos # 0.0 K/mm3 (0.0-0.4) 12/13/19 05:26 Baso # 0.0 K/mm3 (0.0-0.1) 12/13/19 05:26 Seg Neutrophils % 82.7 % (40.0-70.0) H 12/13/19 05:26 Seg Neutrophils # 3.3 K/mm3 (1.8-7.7) 12/13/19 05:26 PT 13.3 Sec. (12.2-14.9) 12/12/19 15:49 INR 1.00 (0.87-1.13) 12/12/19 15:49 APTT 28.6 Sec. (24.2-36.6) 12/12/19 15:49 D-Dimer 271.94 ng/mlDDU (0-234) H 12/12/19 15:49 Sodium 138 mmol/L (137-145) 12/13/19 05:26 Potassium 4.6 mmol/L (3.6-5.0) D 12/13/19 05:26 Chloride 104.3 mmol/L (98-107) 12/13/19 05:26 Carbon Dioxide 19 mmol/L (22-30) L 12/13/19 05:26 Anion Gap 19 mmol/L 12/13/19 05:26 BUN 12 mg/dL (7-17) 12/13/19 05:26 Creatinine 0.6 mg/dL (0.7-1.2) L 12/13/19 05:26 Estimated GFR > 60 ml/min 12/13/19 05:26 BUN/Creatinine Ratio 20 % 12/13/19 05:26 Glucose 147 mg/dL (65-100) H 12/13/19 05:26 Calcium 9.5 mg/dL (8.4-10.2) 12/13/19 05:26 Total Bilirubin 0.20 mg/dL (0.1-1.2) 12/13/19 05:26 AST 16 units/L (5-40) 12/13/19 05:26 ALT 18 units/L (7-56) 12/13/19 05:26 Alkaline Phosphatase 104 units/L (35-129) 12/13/19 05:26 Troponin T < 0.010 ng/mL (0.00-0.029) 12/12/19 17:20 NT-Pro-B Natriuret Pep 39.88 pg/mL (0-900) 12/12/19 17:20 Total Protein 7.5 g/dL (6.3-8.2) 12/13/19 05:26 Albumin 4.0 g/dL (3.9-5) 12/13/19 05:26 Albumin/Globulin Ratio 1.1 % 12/13/19 05:26 Active Medications - Current Medications Current Medications: Generic Name Dose Route Start Last Admin Trade Name Freq PRN Reason Stop Dose Admin Acetaminophen 650 mg 12/12/19 18:23 Tylenol PO Q4H PRN Pain MILD(1-3)/Fever >100.5/[place] Albuterol 2.5 mg 12/12/19 18:23 12/13/19 03:12 Proventil IH 2.5 mg Q4HRT PRN Administration Shortness Of Breath Amlodipine Besylate 5 mg 12/13/19 10:00 Amlodipine PO QDAY JESSIE Amlodipine Besylate 10 mg 12/13/19 10:00 Amlodipine PO QDAY [facility] Aspirin 81 mg 12/13/19 10:00 Baby Aspirin PO QDAY [facility] Atorvastatin Calcium 20 mg 12/12/19 22:00 12/12/19 22:00 Lipitor PO 20 mg QHS JESSIE Administration Cetirizine HCl 10 mg 12/13/19 10:00 Cetirizine PO DAILY [facility] Citalopram Hydrobromide 20 mg 12/13/19 10:00 Celexa PO QDAY JESSIE Citalopram Hydrobromide 20 mg 12/13/19 10:00 Celexa PO QDAY [facility] Fluticasone Propionate 50 mcg 12/13/19 10:00 Flonase NS QDAY [facility] Heparin Sodium (Porcine) 5,000 unit 12/12/19 22:00 12/13/19 03:32 Heparin SUB-Q 5,000 unit Q12HR JESSIE Administration Ceftriaxone Sodium 2 gm in 100 mls @ 200 mls/hr 12/13/19 10:00 Rocephin/Ns 2 Gm/100 Ml IV Q24HR [facility] Protocol Azithromycin 500 mg/ Sodium 250 mls @ 250 mls/hr 12/13/19 10:00 Chloride IV Q24HR [facility] Protocol Lisinopril 5 mg 12/13/19 10:00 Zestril PO QDAY [facility] Methylprednisolone Sodium Succinate 40 mg 12/13/19 10:00 Solu-Medrol IV Q24HR [facility] Montelukast Sodium 10 mg 12/12/19 22:00 12/12/19 23:31 Singulair PO 10 mg QHS [facility] Administration Ondansetron HCl 4 mg 12/12/19 18:23 Zofran IV Q8H PRN Nausea And Vomiting Pravastatin Sodium 40 mg 12/12/19 22:00 12/12/19 23:00 Pravachol PO 40 mg QHS JESSIE Administration Prednisone 50 mg 12/13/19 10:00 Deltasone PO QDAY [facility] Sodium Chloride 10 ml 12/12/19 22:00 12/12/19 22:00 Sodium Chloride Flush Syringe 10 Ml IV 10 ml BID JESSIE Administration Sodium Chloride 10 ml 12/12/19 18:23 Sodium Chloride Flush Syringe 10 Ml IV PRN PRN LINE FLUSH
[2019-12-13] MEDS ORDERED: CITALOPRAM 20 MG TAB PO SCH (10:00)
[2019-12-13] MEDS ORDERED: NON-FORMULARY EACH (Cetirizine Hcl [Zyrtec 10mg Cap] 10 MG) PO SCH (10:00)
[2019-12-13] MEDS ORDERED: AMLODIPINE BESYLATE 5 MG PO SCH (10:00)
[2019-12-13] MEDS ORDERED: MONTELUKAST SODIUM 10 MG PO SCH (10:00)
[2019-12-13] MEDS ORDERED: QUINAPRIL HCL 10 MG PO SCH (10:00)
[2019-12-13] MEDS: LISINOPRIL 5 MG TAB PO SCH (10:38)
[2019-12-13] MEDS: ASPIRIN 81 MG TAB CHEW PO SCH (10:38)
[2019-12-13] MEDS: CITALOPRAM 20 MG TAB PO SCH (10:38)
[2019-12-13] MEDS: methylPREDNISolone Sod Succinate 40 MG/1 ML INJ IV SCH (10:38)
[2019-12-13] MEDS: cefTRIAXone/NS 2 GM/100 ML 2 GM/100 ML BAG IV SCH (10:39)
[2019-12-13] MEDS: amLODIPine 5 MG TAB PO SCH ×2 (10:39→10:45)
[2019-12-13] MEDS: CETIRIZINE 10 MG TAB PO SCH (10:40)
[2019-12-13] MEDS: predniSONE 50 MG TAB PO SCH (11:00)
[2019-12-13] MEDS: FLUTICASONE PROPIONATE NASAL SPRAY 16 GM NS SCH (11:00)
[2019-12-13] MEDS: AZITHROMYCIN 500 MG in SODIUM CHLORIDE 0.9% 250ML 250 ML IV SCH (12:54)
[2019-12-13] MEDS: MONTELUKAST 10 MG TAB PO SCH (21:40)
[2019-12-13] MEDS: PRAVASTATIN 40 MG TAB PO SCH (21:40)
[2019-12-14] MEDS: ALBUTEROL 2.5 MG/3 ML NEBU IH PRN ×3 (07:45→23:56)
[2019-12-14] MEDS: amLODIPine 5 MG TAB PO SCH ×2 (10:00)
[2019-12-14] MEDS: LISINOPRIL 5 MG TAB PO SCH (10:00)
[2019-12-14] MEDS: cefTRIAXone/NS 2 GM/100 ML 2 GM/100 ML BAG IV SCH (10:39)
[2019-12-14] MEDS: CETIRIZINE 10 MG TAB PO SCH (10:39)
[2019-12-14] MEDS: CITALOPRAM 20 MG TAB PO SCH (10:39)
[2019-12-14] MEDS: predniSONE 50 MG TAB PO SCH (10:39)
[2019-12-14] MEDS: methylPREDNISolone Sod Succinate 40 MG/1 ML INJ IV SCH (10:40)
[2019-12-14] MEDS: HEPARIN 5,000 UNIT/1 ML VIAL SUB-Q SCH ×2 (10:40→22:19)
[2019-12-14] MEDS: ASPIRIN 81 MG TAB CHEW PO SCH (10:40)
[2019-12-14] MEDS: FLUTICASONE PROPIONATE NASAL SPRAY 16 GM NS SCH (10:40)
[2019-12-14] MEDS: AZITHROMYCIN 500 MG in SODIUM CHLORIDE 0.9% 250ML 250 ML IV SCH (10:42)
--- NOTE | 2019-12-14 16:49 | Progress Note ---
Assessment and Plan Assessment and plan: Patient is a 64 yo woman with a history of COPD, HTN, CHF, DM type 2, HLD, Asthma and Nicotine Dependence who presents to [facility] ED with SOB, cough and fevers 102.4F. Patient was found to have right middle lobe pneumonia. She requiring O2 now. * CTA chest IMPRESSION: 1. Negative for PE. 2. Right middle lobe atelectasis and mild emphysema. No central obstructive mass or adenopathy identified to account for atelectasis. Right middle lobe pneumonia, aspiration type: Pneumonia protocol: CBC, CMP, chest x-ray, IV antibiotic therapy, blood culture, nebulizer therapy, submental oxygen, pulse oximetry. Acute hypoxemic respiratory failure: NIPPV weaned off now on 4 liters try to wean off Acute COPD exacerbation: Oxygen, nebulizer therapy, IV antibiotic therapy, IV steroid therapy. Acidosis: IV fluid resuscitation therapy, repeat BMP in a.m. Hypertension: Monitor blood pressure every shift, continue medical management. h/o CHF (congestive heart failure): Strict I's/O, daily weight, BNP, submental oxygen, pulse oximetry, afterload reduction, supportive care. Diabetes Mellitus type 2: Consistent carbohydrate diet, sliding scale insulin therapy, Accu-Chek, hypoglycemia protocol. DVT prophylaxis: SCD Advance care planning: Patient is full code Disposition: continue inpatient care because trying to wean O2 History Interval history: Patient was seen and examined. Follow-up on current diagnosis of RML pneumonia. Overnight uneventful as no events directly reported to me. Patient denies any chest pain, nausea/vomiting or severe headaches. Imaging, nursing note, chart, labs and old chart reviewed. Discussed with patient. Hospitalist Physical - Physical exam Narrative exam: Gen: WDWN, NAD, Awake, Alert, Orientated HEENT: NCAT, EOMI, PERRL, OP Clear Neck: supple, no adenopathy, no thyromegaly, no JVD CVS/Heart: RRR, normal S1S2, pulses present bilaterally Chest/Lungs: coarse and diminished bs bilaterally, Symmetrical chest expansion, good air entry bilaterally GI/Abdomen: soft, NTND, good bowel sounds, no guarding or rebound /Bladder: no suprapubic tenderness, no CVA or paraspinal tenderness Extermity/Skin: no c/c/e, no obvious rash MSK: FROM x 4 Neuro: CN 2-12 grossly intact, no new focal deficits Psych: calm - Constitutional Vitals: Temp Pulse Resp BP Pulse Ox 97.9 F 77 18 125/75 97 12/14/19 13:29 12/14/19 13:29 12/14/19 13:29 12/14/19 13:29 12/14/19 13:29 General appearance: Present: cachectic. Absent: mild distress Results - Labs CBC & Chem 7: 12/13/19 05:26 12/13/19 05:26 Labs: Laboratory Last Values WBC 4.0 K/mm3 (4.5-11.0) L 12/13/19 05:26 RBC 4.36 M/mm3 (3.65-5.03) 12/13/19 05:26 Hgb 11.5 gm/dl (10.1-14.3) 12/13/19 05:26 Hct 35.3 % (30.3-42.9) 12/13/19 05:26 MCV 81 fl (79-97) 12/13/19 05:26 MCH 26 pg (28-32) L 12/13/19 05:26 MCHC 33 % (30-34) 12/13/19 05:26 RDW 15.4 % (13.2-15.2) H 12/13/19 05:26 Plt Count 277 K/mm3 (140-440) 12/13/19 05:26 Lymph % (Auto) 14.4 % (13.4-35.0) 12/13/19 05:26 Martin % (Auto) 2.7 % (0.0-7.3) 12/13/19 05:26 Eos % (Auto) 0.0 % (0.0-4.3) 12/13/19 05:26 Baso % (Auto) 0.2 % (0.0-1.8) 12/13/19 05:26 Lymph # 0.6 K/mm3 (1.2-5.4) L 12/13/19 05:26 Martin # 0.1 K/mm3 (0.0-0.8) 12/13/19 05:26 Eos # 0.0 K/mm3 (0.0-0.4) 12/13/19 05:26 Baso # 0.0 K/mm3 (0.0-0.1) 12/13/19 05:26 Seg Neutrophils % 82.7 % (40.0-70.0) H 12/13/19 05:26 Seg Neutrophils # 3.3 K/mm3 (1.8-7.7) 12/13/19 05:26 PT 13.3 Sec. (12.2-14.9) 12/12/19 15:49 INR 1.00 (0.87-1.13) 12/12/19 15:49 APTT 28.6 Sec. (24.2-36.6) 12/12/19 15:49 D-Dimer 271.94 ng/mlDDU (0-234) H 12/12/19 15:49 Sodium 138 mmol/L (137-145) 12/13/19 05:26 Potassium 4.6 mmol/L (3.6-5.0) D 12/13/19 05:26 Chloride 104.3 mmol/L (98-107) 12/13/19 05:26 Carbon Dioxide 19 mmol/L (22-30) L 12/13/19 05:26 Anion Gap 19 mmol/L 12/13/19 05:26 BUN 12 mg/dL (7-17) 12/13/19 05:26 Creatinine 0.6 mg/dL (0.7-1.2) L 12/13/19 05:26 Estimated GFR > 60 ml/min 12/13/19 05:26 BUN/Creatinine Ratio 20 % 12/13/19 05:26 Glucose 147 mg/dL (65-100) H 12/13/19 05:26 Calcium 9.5 mg/dL (8.4-10.2) 12/13/19 05:26 Total Bilirubin 0.20 mg/dL (0.1-1.2) 12/13/19 05:26 AST 16 units/L (5-40) 12/13/19 05:26 ALT 18 units/L (7-56) 12/13/19 05:26 Alkaline Phosphatase 104 units/L (35-129) 12/13/19 05:26 Troponin T < 0.010 ng/mL (0.00-0.029) 12/12/19 17:20 NT-Pro-B Natriuret Pep 39.88 pg/mL (0-900) 12/12/19 17:20 Total Protein 7.5 g/dL (6.3-8.2) 12/13/19 05:26 Albumin 4.0 g/dL (3.9-5) 12/13/19 05:26 Albumin/Globulin Ratio 1.1 % 12/13/19 05:26 Active Medications - Current Medications Current Medications: Generic Name Dose Route Start Last Admin Trade Name Freq PRN Reason Stop Dose Admin Acetaminophen 650 mg 12/12/19 18:23 Tylenol PO Q4H PRN Pain MILD(1-3)/Fever >100.5/[place] Albuterol 2.5 mg 12/12/19 18:23 12/14/19 11:16 Proventil IH 2.5 mg Q4HRT PRN Administration Shortness Of Breath Amlodipine Besylate 5 mg 12/13/19 10:00 12/13/19 10:39 Amlodipine PO 5 mg QDAY JESSIE Administration Amlodipine Besylate 10 mg 12/13/19 10:00 12/13/19 10:45 Amlodipine PO 10 mg QDAY JESSIE Administration Aspirin 81 mg 12/13/19 10:00 12/14/19 10:40 Baby Aspirin PO 81 mg QDAY JESSIE Administration Atorvastatin Calcium 20 mg 12/12/19 22:00 12/13/19 21:40 Lipitor PO 20 mg QHS JESSIE Administration Cetirizine HCl 10 mg 12/13/19 10:00 12/14/19 10:39 Cetirizine PO 10 mg DAILY JESSIE Administration Citalopram Hydrobromide 20 mg 12/13/19 10:00 12/14/19 10:39 Celexa PO 20 mg QDAY JESSIE Administration Fluticasone Propionate 50 mcg 12/13/19 10:00 12/14/19 10:40 Flonase NS 50 mcg QDAY JESSIE Administration Heparin Sodium (Porcine) 5,000 unit 12/12/19 22:00 12/14/19 10:40 Heparin SUB-Q 5,000 unit Q12HR JESSIE Administration Ceftriaxone Sodium 2 gm in 100 mls @ 200 mls/hr 12/13/19 10:00 12/14/19 10:39 Rocephin/Ns 2 Gm/100 Ml IV 200 mls/hr Q24HR JESSIE Administration Protocol Azithromycin 500 mg/ Sodium 250 mls @ 250 mls/hr 12/13/19 10:00 12/14/19 10:42 Chloride IV 250 mls/hr Q24HR JESSIE Administration Protocol Lisinopril 5 mg 12/13/19 10:00 12/13/19 10:38 Zestril PO 5 mg QDAY JESSIE Administration Methylprednisolone Sodium Succinate 40 mg 12/13/19 10:00 12/14/19 10:40 Solu-Medrol IV 40 mg Q24HR JESSIE Administration Montelukast Sodium 10 mg 12/12/19 22:00 12/13/19 21:40 Singulair PO 10 mg QHS JESSIE Administration Ondansetron HCl 4 mg 12/12/19 18:23 Zofran IV Q8H PRN Nausea And Vomiting Pravastatin Sodium 40 mg 12/12/19 22:00 12/13/19 21:40 Pravachol PO 40 mg QHS JESSIE Administration Prednisone 50 mg 12/13/19 10:00 12/14/19 10:39 Deltasone PO 50 mg QDAY JESSIE Administration Sodium Chloride 10 ml 12/12/19 22:00 12/14/19 10:41 Sodium Chloride Flush Syringe 10 Ml IV 10 ml BID JESSIE Administration Sodium Chloride 10 ml 12/12/19 18:23 Sodium Chloride Flush Syringe 10 Ml IV PRN PRN LINE FLUSH
[2019-12-14] MEDS: PRAVASTATIN 40 MG TAB PO SCH (22:18)
[2019-12-14] MEDS: MONTELUKAST 10 MG TAB PO SCH (22:18)
[2019-12-15 07:48] VITALS: BP 132/67
[2019-12-15] MEDS: ALBUTEROL 2.5 MG/3 ML NEBU IH PRN (07:50)
[2019-12-15] MEDS: cefTRIAXone/NS 2 GM/100 ML 2 GM/100 ML BAG IV SCH (09:40)
[2019-12-15] MEDS: AZITHROMYCIN 500 MG in SODIUM CHLORIDE 0.9% 250ML 250 ML IV SCH (09:40)
[2019-12-15] MEDS: FLUTICASONE PROPIONATE NASAL SPRAY 16 GM NS SCH (09:40)
[2019-12-15] MEDS: HEPARIN 5,000 UNIT/1 ML VIAL SUB-Q SCH (09:41)
[2019-12-15] MEDS: ASPIRIN 81 MG TAB CHEW PO SCH (09:41)
[2019-12-15] MEDS: methylPREDNISolone Sod Succinate 40 MG/1 ML INJ IV SCH (09:41)
[2019-12-15] MEDS: predniSONE 50 MG TAB PO SCH (09:41)
[2019-12-15] MEDS: amLODIPine 5 MG TAB PO SCH (09:41)
[2019-12-15] MEDS: CITALOPRAM 20 MG TAB PO SCH (09:42)
[2019-12-15] MEDS: CETIRIZINE 10 MG TAB PO SCH (09:42)
[2019-12-15] MEDS: LISINOPRIL 5 MG TAB PO SCH (09:42)
--- NOTE | 2019-12-15 12:45 | Discharge Summary ---
Providers - Providers Date of Admission: 12/12/19 18:23 Date of discharge: 12/15/19 Attending physician: KRISTI ALBARRAN 12/13/19 09:29 Physical Therapy Evaluation and Treat [CONS] Routine Comment: Reason For Exam: weakness Primary care physician: [employer] Hospitalization Condition: Stable Hospital course: Patient is a 64 yo woman with a history of COPD, HTN, CHF, DM type 2, HLD, Asthma and Nicotine Dependence who presents to [facility] ED with SOB, cough and fevers 102.4F. Patient was found to have right middle lobe pneumonia. She requiring O2 now. * CTA chest IMPRESSION: 1. Negative for PE. 2. Right middle lobe atelectasis and mild emphysema. No central obstructive mass or adenopathy identified to account for atelectasis. Discharge Diagnoses: Right middle lobe pneumonia, aspiration type: Pneumonia protocol: CBC, CMP, chest x-ray, IV antibiotic therapy, blood culture, nebulizer therapy, submental oxygen, pulse oximetry. Acute hypoxemic respiratory failure: NIPPV weaned off now on 4 liters try to wean off Acute COPD exacerbation: Oxygen, nebulizer therapy, IV antibiotic therapy, IV steroid therapy. Acidosis: IV fluid resuscitation therapy, repeat BMP in a.m. Hypertension: Monitor blood pressure every shift, continue medical management. h/o CHF (congestive heart failure): Strict I's/O, daily weight, BNP, submental oxygen, pulse oximetry, afterload reduction, supportive care. Diabetes Mellitus type 2: Consistent carbohydrate diet, sliding scale insulin therapy, Accu-Chek, hypoglycemia protocol. DVT prophylaxis: SCD Advance care planning: Patient is full code Disposition: continue inpatient care because trying to wean O2 Disposition: TO HOME OR SELFCARE Time spent for discharge: 35 minutes Core Measure Documentation - Palliative Care Palliative Care/ Comfort Measures: Not Applicable - Core Measures Any of the following diagnoses?: none - VTE Discharge Requirements Deep Vein Thrombosis/Pulmonary Embolism Present on Admission: No Has pt received <5 days of overlap therapy or INR<2.0: No Anticoagulant overlap therapy prescribed at discharge: No Contraindication No Overlap Therapy order at DC: Not Indicated Exam - Physical Exam Narrative exam: Gen: WDWN, NAD, Awake, Alert, Orientated HEENT: NCAT, EOMI, PERRL, OP Clear Neck: supple, no adenopathy, no thyromegaly, no JVD CVS/Heart: RRR, normal S1S2, pulses present bilaterally Chest/Lungs: coarse and diminished bs bilaterally, Symmetrical chest expansion, good air entry bilaterally GI/Abdomen: soft, NTND, good bowel sounds, no guarding or rebound /Bladder: no suprapubic tenderness, no CVA or paraspinal tenderness Extermity/Skin: no c/c/e, no obvious rash MSK: FROM x 4 Neuro: CN 2-12 grossly intact, no new focal deficits Psych: calm - Constitutional Vitals: Temp Pulse Resp BP Pulse Ox 98.3 F 70 20 132/67 97 12/15/19 03:11 12/15/19 10:00 12/15/19 07:50 12/15/19 03:11 12/15/19 08:37 Plan Activity: other (no strenous activity unless cleared by PCP) Diet: low salt, diabetic Special Instructions: record daily BP diary, record blood sugar diary (three times a day with meals) Follow up with: FRANCESCA RUIZ MD [Staff Physician] - 7 Days Prescriptions: Pravastatin [Pravachol] 40 mg PO QHS #30 tablet Montelukast [Singulair] 10 mg PO QHS #30 tablet Acetaminophen [Acetaminophen TAB] 650 mg PO Q4H PRN #15 tablet PRN Reason: Pain MILD(1-3)/Fever >100.5/[place] cefUROXime [Ceftin] 2 tab PO BID #8 tablet predniSONE [Deltasone] 1 dose PO QDAY 21 Days #65 tab ALBUTEROL NEB's [Proventil 0.083% NEBS] 2.5 mg IH Q4HRT PRN #15 nebu PRN Reason: Shortness Of Breath lisinopriL [Zestril TAB] 5 mg PO QDAY #30 tablet
== END 2019-12-15 14:30 | disposition home health service (06) | DRG 177 ==
LOC: ED 14:18 → 2B-ACE 18:23
PROVIDERS: ADMIT Internal Medicine; ATTEND Internal Medicine
DX: J69.0 Pneumonitis due to inhalation of food and vomit (principal); J96.01 Acute respiratory failure with hypoxia; E87.2 Acidosis; I50.22 Chronic systolic (congestive) heart failure; E11.8 Type 2 diabetes mellitus with unspecified complications; I11.0 Hypertensive heart disease with heart failure; F17.200 Nicotine dependence, unspecified, uncomplicated; J43.9 Emphysema, unspecified; Z98.51 Tubal ligation status; Z82.49 Family history of ischemic heart disease and other diseases of the circulatory system; Z79.82 Long term (current) use of aspirin; Z79.899 Other long term (current) drug therapy
CPT/HCPCS: 36415; 71046; 71275; 80053; 83880; 84484; 85025; 85379; 85610; 85730; 87040; 93005; 93010; 94640; 94644; 94760; G0378; A9270-GY; J0456; J0696; J1644; J2920; J2930; J3475; J7050; J7512; Q9967

== ENCOUNTER 2020-06-09 04:19 | Emergency (ER) | payer MEDICARE ==
[2020-06-09] MEDS ORDERED: IPRATROPIUM/ALBUTEROL SULFATE 3 ML AMPUL.NEB IH ONE (04:29)
[2020-06-09] MEDS ORDERED: ALBUTEROL 2.5 MG/3 ML NEBU IH ONE ×2 (05:09→05:12)
[2020-06-09] MEDS ORDERED: IPRATROPIUM 0.02% NEBU 2.5 ML IH ONE (05:10)
[2020-06-09] MEDS ORDERED: methylPREDNISolone Sod Succinate 125 MG/2 ML INJ IV ONE (05:11)
--- NOTE | 2020-06-09 05:56 | XRay Report ---
CHEST 1 VIEW INDICATION / CLINICAL INFORMATION: AKOSUA. COPD, tachypnea, wheezing COMPARISON: 12/12/2019 FINDINGS: SUPPORT DEVICES: None. HEART / MEDIASTINUM: No significant abnormality. LUNGS / PLEURA: No significant pulmonary or pleural abnormality. No pneumothorax. ADDITIONAL FINDINGS: No significant additional findings. IMPRESSION: No acute disease or interval change from 12/12/2019 Signer Name: Mohan Field MD FACRenan Signed: 06/09/2020 5:51 AM Workstation Name: [id number]
[2020-06-09 05:58] LABS: Basophils # (Auto) 0.1 K/mm3 (0.0-0.1); Basophils % (Auto) 1.5 % (0.0-1.8); Eosinophils # (Auto) 0.4 K/mm3 (0.0-0.4); Eosinophils % (Auto) 4.4 % (0.0-4.3); Hematocrit 37.8 % (30.3-42.9); Hemoglobin 12.5 gm/dl (10.1-14.3); Lymphocytes # (Auto) 3.6 K/mm3 (1.2-5.4); Lymphocytes % (Auto) 43.4 % (13.4-35.0); Mean Corpuscular HGB Conc 33 % (30-34); Mean Corpuscular Volume 82 fl (79-97); Monocytes # (Auto) 0.5 K/mm3 (0.0-0.8); Monocytes % (Auto) 5.7 % (0.0-7.3); Platelet Count 339 K/mm3 (140-440); Red Blood Count 4.58 M/mm3 (3.65-5.03); Red Cell Distribution Width 14.4 % (13.2-15.2)
[2020-06-09 06:15] LABS: Alanine Aminotransferase 13 units/L (7-56); Albumin 4.2 g/dL (3.9-5); BUN/Creatinine Ratio 13; Blood Urea Nitrogen 10 mg/dL (7-17); Calcium 10.1 mg/dL (8.4-10.2); Hemolysis Index 6
[2020-06-09 07:51] VITALS: BP 112/69
--- NOTE | 2020-06-09 08:08 | Emergency Department Report ---
ED Asthma HPI - General Chief Complaint: Dyspnea/Respdistress Stated Complaint: DIFF BREATHING Time Seen by Provider: 06/09/20 07:48 Source: patient Mode of arrival: Ambulatory Limitations: No Limitations - History of Present Illness Initial Comments: 64-year-old -[place]ales[place] female smoker with known history of COPD presents emergency department complaining of a COPD exacerbation which she thinks was triggered by an upper respiratory tract infection was started a few days ago. Complains of nasal congestion, rhinitis with a cough which was followed by a wheezing and shortness of of breath and a nonproductive cough. States that she has all of her asthma medications at home with the exception of the Singulair and the steroids and for reasons unknown cannot avert this exacerbation although she did not begin to treat herself until pulse ox dropped down to the very low 90s. She reports no orthopnea, no hemoptysis no hematemesis no chest pain, no palpitations, no presyncope MD Complaint: "asthma attack", wheezing Asthma History: history of frequent attac, history of prior ED visit Context: recent URI - Related Data Home Medications Medication Instructions Recorded Confirmed Last Taken Amlodipine Besylate [Norvasc] 10 mg PO QDAY 12/12/19 12/12/19 Unknown Aspirin [Aspirin BABY CHEW TAB] 81 mg PO QDAY 12/12/19 12/12/19 Unknown AtorvaSTATin [Lipitor] 20 mg PO QHS 12/12/19 12/12/19 Unknown Citalopram [Celexa] 20 mg PO QDAY 12/12/19 12/12/19 Unknown Fluticasone/Vilanterol [Breo 1 each IH QDAY 12/12/19 12/12/19 Unknown Ellipta 200-25 Mcg INH] Previous Rx's Medication Instructions Recorded Last Taken Type ALBUTEROL NEB's [Proventil 0.083% 2.5 mg IH Q4HRT PRN #15 nebu 12/15/19 Unknown Rx NEBS] Acetaminophen [Acetaminophen TAB] 650 mg PO Q4H PRN #15 tablet 12/15/19 Unknown Rx Citalopram [Celexa] 20 mg PO QDAY #15 tablet 12/15/19 Unknown Rx Fluticasone [Flonase] 50 mcg NS QDAY #1 bottle 12/15/19 Unknown Rx Pravastatin [Pravachol] 40 mg PO QHS #30 tablet 12/15/19 Unknown Rx cefUROXime [Ceftin] 2 tab PO BID #8 tablet 12/15/19 Unknown Rx lisinopriL [Zestril TAB] 5 mg PO QDAY #30 tablet 12/15/19 Unknown Rx predniSONE [Deltasone] 1 dose PO QDAY 21 Days #65 tab 12/15/19 Unknown Rx Montelukast [Singulair] 10 mg PO QHS #30 tablet 06/09/20 Unknown Rx predniSONE [Deltasone] 50 mg PO QDAY #5 tab 06/09/20 Unknown Rx Allergies Allergy/AdvReac Type Severity Reaction Status Date / Time No Known Allergies Allergy Verified 06/12/15 16:48 ED Review of Systems ROS: Stated complaint: DIFF BREATHING Other details as noted in HPI Comment: All other systems reviewed and negative ED Past Medical Hx - Past Medical History Hx Hypertension: (BORDERLINE) Hx Congestive Heart Failure: Yes Hx Diabetes: ("MEDICATION INDUCED AT TIMES") Hx Asthma: Yes Hx COPD: Yes Hx HIV: No - Surgical History Additional Surgical History: THYROID CYST REMOVED. TUBAL LIGATION - Social History Smoking Status: Current Some Day Smoker Substance Use Type: None - Medications Home Medications: Home Medications Medication Instructions Recorded Confirmed Last Taken Type Amlodipine Besylate [Norvasc] 10 mg PO QDAY 12/12/19 12/12/19 Unknown History Aspirin [Aspirin BABY CHEW TAB] 81 mg PO QDAY 12/12/19 12/12/19 Unknown History AtorvaSTATin [Lipitor] 20 mg PO QHS 12/12/19 12/12/19 Unknown History Citalopram [Celexa] 20 mg PO QDAY 12/12/19 12/12/19 Unknown History Fluticasone/Vilanterol [Breo 1 each IH QDAY 12/12/19 12/12/19 Unknown History Ellipta 200-25 Mcg INH] ALBUTEROL NEB's [Proventil 0.083% 2.5 mg IH Q4HRT PRN #15 nebu 12/15/19 Unknown Rx NEBS] Acetaminophen [Acetaminophen TAB] 650 mg PO Q4H PRN #15 tablet 12/15/19 Unknown Rx Citalopram [Celexa] 20 mg PO QDAY #15 tablet 12/15/19 Unknown Rx Fluticasone [Flonase] 50 mcg NS QDAY #1 bottle 12/15/19 Unknown Rx Pravastatin [Pravachol] 40 mg PO QHS #30 tablet 12/15/19 Unknown Rx cefUROXime [Ceftin] 2 tab PO BID #8 tablet 12/15/19 Unknown Rx lisinopriL [Zestril TAB] 5 mg PO QDAY #30 tablet 12/15/19 Unknown Rx predniSONE [Deltasone] 1 dose PO QDAY 21 Days #65 tab 12/15/19 Unknown Rx Montelukast [Singulair] 10 mg PO QHS #30 tablet 06/09/20 Unknown Rx predniSONE [Deltasone] 50 mg PO QDAY #5 tab 06/09/20 Unknown Rx ED Physical Exam - General Limitations: No Limitations General appearance: alert, in no apparent distress - Head Head exam: Present: atraumatic, normocephalic - Eye Eye exam: Present: normal appearance - ENT ENT exam: Present: mucous membranes moist - Neck Neck exam: Present: normal inspection, full ROM - Respiratory Respiratory exam: Present: normal lung sounds bilaterally, wheezes. Absent: respiratory distress - Cardiovascular Cardiovascular Exam: Present: regular rate, normal rhythm. Absent: systolic murmur, diastolic murmur, rubs, gallop - GI/Abdominal GI/Abdominal exam: Present: soft, normal bowel sounds - Extremities Exam Extremities exam: Present: normal inspection - Back Exam Back exam: Present: normal inspection - Neurological Exam Neurological exam: Present: alert, oriented X3 - Psychiatric Psychiatric exam: Present: normal affect, normal mood - Skin Skin exam: Present: warm, dry, intact, normal color. Absent: rash ED Course Vital Signs 06/09/20 06/09/20 04:23 07:47 Temperature 98.5 F 97.8 F Pulse Rate 92 H 90 Respiratory 22 18 Rate Blood Pressure 102/79 112/69 O2 Sat by Pulse 96 97 Oximetry - Reevaluation(s) Reevaluation #1: 06/09/20 08:05 Ms. omer was treated prior to my arrival to the emergency department with a complement of asthma avoiding medications and reports a complete turnaround of her symptoms. States that she is ready to go home and has no reservations. She is ambulating up and down the halls of the emergency department with no distress. States that she has a primary care doctor with whom she can follow- up. ED Medical Decision Making - Lab Data Result diagrams: 06/09/20 05:30 06/09/20 05:30 - Radiology Data Print Report Referring Physician:CINDY Robertson Name:YESSENIA SCHUMACHERPatient ID:[id number] of :[id number]:FemaleAccession:[id number] Date:[id number] Status:Finalized Findings [facility] [address] [place] [address] XRay Report Signed Patient: YESSENIA SCHUMACHER MR#: [id number] : 1955 Acct:[id number] Age/Sex: 64 / F ADM Date: 06/09/20 Loc: ED Attending Dr: Ordering Physician: ROME HAWLEY Date of Service: 06/09/20 Procedure(s): XR chest 1V ap Accession Number(s): [id number] cc: ROME HAWLEY Fluoro Time In Minutes: CHEST 1 VIEW INDICATION / CLINICAL INFORMATION: AKOSUA. COPD, tachypnea, wheezing COMPARISON: 12/12/2019 FINDINGS: SUPPORT DEVICES: None. HEART / MEDIASTINUM: No significant abnormality. LUNGS / PLEURA: No significant pulmonary or pleural abnormality. No pneumothorax. ADDITIONAL FINDINGS: No significant additional findings. IMPRESSION: No acute disease or interval change from 12/12/2019 Signer Name: Mohan Field MD FACR Signed: 06/09/2020 5:51 AM Workstation Name: [id number] Transcribed By: MS Dictated By: Mohan Field MD Electronically Authenticated By: Mohan Field MD Signed Date/Time: 06/09/20550 DD/ 0 TD/TT: - Medical Decision Making No altered mental status, saddle respirations, belly breathing or other signs of impending ventilatory failure. No intubations or recent admissions to the hospital for asthma. Unlikely pneumonia, CHF, COPD, GERD Workup Review include a chest x-ray which was normal she also received steroids and albuterol Therapies: Prednisone 50 mg PO. Albuterol nebulizer Reassessment: Patient improved with albuterol and ipratropium in less than 2 hours. Disposition: Discharge home with return precautions. Advised to follow up with primary care physician within next 24-48 hours. Aside from this acute exacerbation patient has been well controlled on baseline home regimen. Rx short steroid course, albuterol, Singulair, Flovent Print Report Referring Physician:CINDY Robertson Name:YESSENIA SCHUMACHERPatient ID: [id number] of :[id number]:FemaleAccession:[id number] Date:4798-95-76Nkuuyt Status:Finalized Findings [facility] [address] [place] [address] XRay Report Signed Patient: YESSENIA SCHUMACHER MR#: [id number] : 1955 Acct:[id number] Age/Sex: 64 / F ADM Date: 06/09/20 Loc: ED Attending Dr: Ordering Physician: ROEM HAWLEY Date of Service: 06/09/20 Procedure(s): XR chest 1V ap Accession Number(s): [id number] cc: ROME HAWLEY Fluoro Time In Minutes: CHEST 1 VIEW INDICATION / CLINICAL INFORMATION: AKOSUA. COPD, tachypnea, wheezing COMPARISON: 12/12/2019 FINDINGS: SUPPORT DEVICES: None. HEART / MEDIASTINUM: No significant abnormality. LUNGS / PLEURA: No significant pulmonary or pleural abnormality. No pneumothorax. ADDITIONAL FINDINGS: No significant additional findings. IMPRESSION: No acute disease or interval change from 12/12/2019 Signer Name: Mohan Field MD FACR Signed: 06/09/2020 5:51 AM Workstation Name: [id number] Transcribed By: MS Dictated By: Mohan Field MD Electronically Authenticated By: Mohan Field MD Signed Date/Time: 06/09/20550 DD/ 0 TD/TT: Critical care attestation.: If time is entered above; I have spent that time in minutes in the direct care of this critically ill patient, excluding procedure time. ED Disposition Clinical Impression: Asthma exacerbation Disposition: DC-01 TO HOME OR SELFCARE Is pt being admited?: No Does the pt Need Aspirin: No Condition: Stable Instructions: Asthma (ED), How to Use a Peak Flow Meter (ED) Additional Instructions: Please be sure to utilize a peak flow meter as we discussed to overt possible asthma exacerbations. Please be sure not to run out of any of your home medications and maintain close follow-up with your current primary care doctor. If you have any issues with your current primary care doctor another PCP has been listed for backup Prescriptions: predniSONE [Deltasone] 50 mg PO QDAY #5 tab Montelukast [Singulair] 10 mg PO QHS #30 tablet Referrals: PRIMARY CARE, [Primary Care Provider] - 3-5 Days FRANCESCA RUIZ MD [Staff Physician] - 3-5 Days
== END 2020-06-09 08:32 | disposition home or self-care (01) ==
LOC: ED 04:19
DX: J45.901 Unspecified asthma with (acute) exacerbation (principal); I11.0 Hypertensive heart disease with heart failure; I50.9 Heart failure, unspecified; E11.9 Type 2 diabetes mellitus without complications; F17.200 Nicotine dependence, unspecified, uncomplicated; Z98.51 Tubal ligation status; Z98.890 Other specified postprocedural states; Z79.899 Other long term (current) drug therapy
CPT/HCPCS: 36415; 71045; 80053; 83880; 84484; 85025; 94640; 96374; 99284; J2930

== ENCOUNTER 2021-08-08 22:26 | Emergency (ER) | payer MEDICARE ==
[2021-08-08] MEDS ORDERED: SODIUM CHLORIDE 0.9% 500 ML 500 ML IV ONE (23:43)
[2021-08-08] MEDS ORDERED: MAGNESIUM SULFATE 2 GM/50 ML BAG IV ONE (23:43)
[2021-08-08] MEDS ORDERED: methylPREDNISolone Sod Succinate 125 MG/2 ML INJ IV ONE (23:43)
[2021-08-08] MEDS ORDERED: IPRATROPIUM 0.02% NEBU 2.5 ML IH ONE (23:43)
[2021-08-08] MEDS ORDERED: ALBUTEROL 2.5 MG/3 ML NEBU IH ONE (23:43)
[2021-08-08] MEDS ORDERED: ACETAMINOPHEN 325 MG TAB PO STA (23:45)
--- NOTE | 2021-08-08 23:46 | Emergency Department Report ---
ED General Adult HPI - General Chief complaint: Dyspnea/Respdistress Stated complaint: SHORTNESS OF BREATH Time Seen by Provider: 08/08/21 23:07 Source: patient, RN notes reviewed, old records reviewed Mode of arrival: Ambulatory Limitations: Physical Limitation - History of Present Illness Initial comments: The patient was evaluated in the emergency department for symptoms described in the history of present illness. He/she was evaluated in the context of the global COVID-19 pandemic, which necessitated consideration that the patient might be at risk for infection with the virus that causes COVID-19. Institutional protocols and algorithms that pertain to the evaluation of patients at risk for COVID-19 are in a state of rapid change based on i nformation released by regulatory bodies including the CDC and federal and state organizations. These policies and algorithms were followed during the patient's care in the emergency department. Please note that these policies, procedures and recommendations changed on a rapid basis. The patient is a 66-year-old female. She has a past medical history of COPD, hypertension and high cholesterol. She is not on home oxygen. 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 She is COVID-19 vaccinated. She presents to the ER today with a few days of chest tightness, cough, wheezing, clearing mucus production, and shortness of breath. Denies headache, neck pain, abdominal pain, vomiting, diaphoresis, leg pain, leg swelling, travel, surgery, immobilization, DVT and pulmonary embolism risk factors. This is similar to prior COPD exacerbations. No sick contacts. Minimal relief with home medic ations. Chest tightness central, does not radiate to the back, arms or neck. -: Gradual, days(s) Location: chest Radiation: non-radiation Quality: aching Consistency: constant Improves with: rest Worsens with: movement - Related Data Home Medications Medication Instructions Recorded Confirmed Last Taken Amlodipine Besylate [Norvasc] 10 mg PO QDAY 12/12/19 12/12/19 Unknown Aspirin [Aspirin BABY CHEW TAB] 81 mg PO QDAY 12/12/19 12/12/19 Unknown AtorvaSTATin [Lipitor] 20 mg PO QHS 12/12/19 12/12/19 Unknown Citalopram [Celexa] 20 mg PO QDAY 12/12/19 12/12/19 Unknown Fluticasone/Vilanterol [Breo 1 each IH QDAY 12/12/19 12/12/19 Unknown Ellipta 200-25 Mcg INH] Previous Rx's Medication Instructions Recorded Last Taken Type ALBUTEROL NEB's [Proventil 0.083% 2.5 mg IH Q4HRT PRN #15 nebu 12/15/19 Unknown Rx NEBS] Acetaminophen [Acetaminophen TAB] 650 mg PO Q4H PRN #15 tablet 12/15/19 Unknown Rx Citalopram [Celexa] 20 mg PO QDAY #15 tablet 12/15/19 Unknown Rx Fluticasone [Flonase] 50 mcg NS QDAY #1 bottle 12/15/19 Unknown Rx Pravastatin [Pravachol] 40 mg PO QHS #30 tablet 12/15/19 Unknown Rx cefUROXime [Ceftin] 2 tab PO BID #8 tablet 12/15/19 Unknown Rx lisinopriL [Zestril TAB] 5 mg PO QDAY #30 tablet 12/15/19 Unknown Rx predniSONE 1 dose PO QDAY 21 Days #65 tab 12/15/19 Unknown Rx Montelukast [Singulair] 10 mg PO QHS #30 tablet 06/09/20 Unknown Rx predniSONE [Deltasone] 50 mg PO QDAY #5 tab 06/09/20 Unknown Rx Albuterol Sulfate [Albuterol 0.63% 0.63 mg IH Q4HR PRN #2 ml 08/09/21 Unknown Rx NEBS] Albuterol Sulfate [Proair 90 mcg IH Q4HR PRN #2 aer.pow.ba 08/09/21 Unknown Rx Respiclick] DOXYCYCLINE Hyclate [Vibramycin] 100 mg PO Q12HR #10 capsule 08/09/21 Unknown Rx Ipratropium (Nf) [Atrovent] 2 puff IH Q6HR PRN #1 inha 08/09/21 Unknown Rx Ipratropium [Atrovent NEB] 0.5 mg IH Q4HR #2 ml 08/09/21 Unknown Rx predniSONE [Deltasone] 40 mg PO QDAY #8 tab 08/09/21 Unknown Rx Allergies Allergy/AdvReac Type Severity Reaction Status Date / Time No Known Allergies Allergy Verified 06/12/15 16:48 ED Review of Systems ROS: Stated complaint: SHORTNESS OF BREATH Other details as noted in HPI Constitutional: malaise, weakness, other (Denies loss of taste and smell) Eyes: denies: eye discharge ENT: congestion Respiratory: cough, shortness of breath, SOB with exertion, SOB at rest, wheezing Cardiovascular: chest pain Gastrointestinal: denies: nausea, vomiting, diarrhea Genitourinary: denies: dysuria Musculoskeletal: myalgia Neurological: weakness Psychiatric: anxiety Hematological/Lymphatic: denies: easy bleeding ED Past Medical Hx - Past Medical History Hx Hypertension: (BORDERLINE) Hx Congestive Heart Failure: Yes Hx Diabetes: ("MEDICATION INDUCED AT TIMES") Hx Asthma: Yes Hx COPD: Yes Hx HIV: No - Surgical History Additional Surgical History: THYROID CYST REMOVED. TUBAL LIGATION - Social History Smoking Status: Never Smoker - Medications Home Medications: Home Medications Medication Instructions Recorded Confirmed Last Taken Type Amlodipine Besylate [Norvasc] 10 mg PO QDAY 12/12/19 12/12/19 Unknown History Aspirin [Aspirin BABY CHEW TAB] 81 mg PO QDAY 12/12/19 12/12/19 Unknown History AtorvaSTATin [Lipitor] 20 mg PO QHS 12/12/19 12/12/19 Unknown History Citalopram [Celexa] 20 mg PO QDAY 12/12/19 12/12/19 Unknown History Fluticasone/Vilanterol [Breo 1 each IH QDAY 12/12/19 12/12/19 Unknown History Ellipta 200-25 Mcg INH] ALBUTEROL NEB's [Proventil 0.083% 2.5 mg IH Q4HRT PRN #15 nebu 12/15/19 Unknown Rx NEBS] Acetaminophen [Acetaminophen TAB] 650 mg PO Q4H PRN #15 tablet 12/15/19 Unknown Rx Citalopram [Celexa] 20 mg PO QDAY #15 tablet 12/15/19 Unknown Rx Fluticasone [Flonase] 50 mcg NS QDAY #1 bottle 12/15/19 Unknown Rx Pravastatin [Pravachol] 40 mg PO QHS #30 tablet 12/15/19 Unknown Rx cefUROXime [Ceftin] 2 tab PO BID #8 tablet 12/15/19 Unknown Rx lisinopriL [Zestril TAB] 5 mg PO QDAY #30 tablet 12/15/19 Unknown Rx predniSONE 1 dose PO QDAY 21 Days #65 tab 12/15/19 Unknown Rx Montelukast [Singulair] 10 mg PO QHS #30 tablet 06/09/20 Unknown Rx predniSONE [Deltasone] 50 mg PO QDAY #5 tab 06/09/20 Unknown Rx Albuterol Sulfate [Albuterol 0.63% 0.63 mg IH Q4HR PRN #2 ml 08/09/21 Unknown Rx NEBS] Albuterol Sulfate [Proair 90 mcg IH Q4HR PRN #2 aer.pow.ba 08/09/21 Unknown Rx Respiclick] DOXYCYCLINE Hyclate [Vibramycin] 100 mg PO Q12HR #10 capsule 08/09/21 Unknown Rx Ipratropium (Nf) [Atrovent] 2 puff IH Q6HR PRN #1 inha 08/09/21 Unknown Rx Ipratropium [Atrovent NEB] 0.5 mg IH Q4HR #2 ml 08/09/21 Unknown Rx predniSONE [Deltasone] 40 mg PO QDAY #8 tab 08/09/21 Unknown Rx ED Physical Exam - General Limitations: Physical Limitation General appearance: alert, anxious, in distress - Head Head exam: Present: atraumatic, normocephalic - Eye Eye exam: Present: normal appearance, EOMI. Absent: nystagmus - ENT ENT exam: Present: normal exam, normal orophraynx, mucous membranes moist, normal external ear exam - Neck Neck exam: Present: normal inspection, full ROM. Absent: tenderness, meningismus - Respiratory Respiratory exam: Present: respiratory distress, wheezes, rhonchi, accessory muscle use - Cardiovascular Cardiovascular Exam: Present: normal rhythm, tachycardia, normal heart sounds. Absent: bradycardia, irregular rhythm, systolic murmur, diastolic murmur, rubs, gallop - GI/Abdominal GI/Abdominal exam: Present: soft. Absent: distended, tenderness, guarding, rebound, rigid, pulsatile mass - Extremities Exam Extremities exam: Present: normal inspection, full ROM, other (2+ pulses noted in the bilateral upper and lower extremities. There is no palpable cord. negative Homans sign. Muscular compartments are soft. The pelvis is stable.). Absent: pedal edema, calf tenderness - Back Exam Back exam: Present: normal inspection, full ROM. Absent: tenderness, CVA tenderness (R), CVA tenderness (L), paraspinal tenderness, vertebral tenderness - Neurological Exam Neurological exam: Present: alert, oriented X3, normal gait, other (No facial droop. Tongue midline. Extraocular movements intact bilaterally. Facial sensation intact to light touch in V1, V2, V3 distribution bilaterally. 5 and a 5 strength in 4 extremities. Sensation intact to light touch in 4 extremities.). Absent: motor sensory deficit - Psychiatric Psychiatric exam: Present: anxious - Skin Skin exam: Present: warm, dry, intact, normal color. Absent: rash ED Course Vital Signs 08/08/21 08/08/21 08/09/21 22:30 22:41 00:19 Temperature 98.2 F Pulse Rate 102 H Pulse Rate [ 77 Posterior Right ] Respiratory 28 H 28 H Rate Respiratory 20 Rate [Posterior Right] Blood Pressure 119/77 O2 Sat by Pulse 90 96 Oximetry 08/09/21 01:05 Temperature Pulse Rate 82 Pulse Rate [ Posterior Right ] Respiratory 24 Rate Respiratory Rate [Posterior Right] Blood Pressure 115/61 O2 Sat by Pulse 98 Oximetry - Reevaluation(s) Reevaluation #1: 08/09/21 00:33 Differential diagnosis, including but not limited to: Pneumonia, bronchitis, COPD exacerbation, costochondritis Assessment and plan: 68-year-old female, with a known history of COPD, we denies travel, surgery, immobilization, DVT and pulmonary embolism risk factors, who is low risk by Wells criteria for pulmonary embolism, who presents with tachycardia, tachypnea, wheezing, likely secondary to COPD exacerbation. Start albuterol, Atrovent, steroids, mag, fluids and pain medicine. Obtain EKG, x-ray the chest is unremarkable. Assuming troponin negative x1, patient is ruled out for myocardial infarction, as symptoms present for greater than 8 hours. Reassess after initial data points. Patient lives at home with another individual, she does report that she has a cane and/or walker at home, and there are 5 steps in her house. 08/09/21 01:11 Still wheezing. Feels improved. Laboratory studies unremarkable. EKG unchanged from prior. Chest x-ray unremarkable. Has about 8 cc of albuterol le ft in her nebulizer therapy 08/09/21 01:57 Final reassessment. Wheezing resolved. Feels much improved. Able to walk with a steady gait without desaturating and becoming significantly symptomatic. The patient is smiling, reports significant improvement in symptoms, and is endorsing readiness for discharge. Return precautions are reviewed. Patient articulates understanding. All questions answered. ED Medical Decision Making - Lab Data Result diagrams: 08/08/21 23:53 08/08/21 23:53 Vital Signs 08/08/21 08/08/21 08/09/21 22:30 22:41 00:19 Temperature 98.2 F Pulse Rate 102 H Pulse Rate [ 77 Posterior Right ] Respiratory 28 H 28 H Rate Respiratory 20 Rate [Posterior Right] Blood Pressure 119/77 O2 Sat by Pulse 90 96 Oximetry Lab Results 08/08/21 Range/Units 23:53 WBC 7.0 (4.5-11.0) K/mm3 RBC 4.60 (3.65-5.03) M/mm3 Hgb 12.2 (10.1-14.3) gm/dl Hct 37.4 (30.3-42.9) % MCV 81 (79-97) fl MCH 27 L (28-32) pg MCHC 33 (30-34) % RDW 14.1 (13.2-15.2) % Plt Count 323 (140-440) K/mm3 Lymph % (Auto) 28.0 (13.4-35.0) % [place] % (Auto) 4.9 (0.0-7.3) % Eos % (Auto) 6.3 H (0.0-4.3) % Baso % (Auto) 0.9 (0.0-1.8) % Lymph # (Auto) 2.0 (1.2-5.4) K/mm3 [place] # (Auto) 0.3 (0.0-0.8) K/mm3 Eos # (Auto) 0.4 (0.0-0.4) K/mm3 Baso # (Auto) 0.1 (0.0-0.1) K/mm3 Seg Neutrophils % 59.9 (40.0-70.0) % Seg Neutrophils # 4.2 (1.8-7.7) K/mm3 - EKG Data -: EKG Interpreted by Ia EKG shows normal: sinus rhythm Rate: normal - EKG Data Interpretation: unchanged when compared t 08/09/21 01:12 EKG today is interpreted 12: 40 Sinus rhythm, rate 80 bpm. Normal axis, normal P wave axis, QTC 445 ms. Motion artifact. Abnormal EKG. Not a STEMI. Appears unchanged when compared to prior EKG from December 12, 2019 - Radiology Data Radiology results: pending, report reviewed, image reviewed CHEST 1 VIEW 08/08/2021 11:14 PM INDICATION / CLINICAL INFORMATION: Dyspnea. COMPARISON: Chest x-ray 06/09/2020 FINDINGS: SUPPORT DEVICES: None. HEART / MEDIASTINUM: No significant abnormality. LUNGS / PLEURA: No significant pulmonary or pleural abnormality. No pneumothorax. ADDITIONAL FINDINGS: No significant additional findings. IMPRESSION: 1. No acute findings. Signer Name: Brent Davis MD Signed: 08/08/2021 11:23 PM Workstation Name: [id number] Critical Care Time: Yes Critical care time in (mins) excluding proc time.: 35 Critical care attestation.: If time is entered above; I have spent that time in minutes in the direct care of this critically ill patient, excluding procedure time. ED Disposition Clinical Impression: COPD exacerbation Disposition: HOME / SELF CARE / HOMELESS Is pt being admited?: No Does the pt Need Aspirin: No Condition: Good Instructions: Chronic Obstructive Pulmonary Disease (ED), Chronic Obstructive Pulmonary Disease Additional Instructions: Please take albuterol every 4-6 hours for the next 5 days, and Atrovent as directed. Take the steroids and antibiotics as directed. Avoid consumption and exposure to tobacco and smoke products. Please follow-up with your primary care doctor or air conditioning specialist, such as Dr. King, within the next 7 days for a repeat checkup and evaluation. Please return to the emergency room right away with new pain, worsened pain, migration of pain, projectile vomiting, change in mental status, confusion, recurrence of symptoms, or any new, worsened or different symptoms not present on the initial emergency room evaluation. Referrals: JANELLE KING MD [Staff Physician] - 7-10 days
[2021-08-09 00:25] LABS: Basophils # (Auto) 0.1 K/mm3 (0.0-0.1); Basophils % (Auto) 0.9 % (0.0-1.8); Eosinophils # (Auto) 0.4 K/mm3 (0.0-0.4); Eosinophils % (Auto) 6.3 % (0.0-4.3); Hematocrit 37.4 % (30.3-42.9); Hemoglobin 12.2 gm/dl (10.1-14.3); Mean Corpuscular HGB Conc 33 % (30-34); Mean Corpuscular Volume 81 fl (79-97); Monocytes # (Auto) 0.3 K/mm3 (0.0-0.8); Monocytes % (Auto) 4.9 % (0.0-7.3); Platelet Count 323 K/mm3 (140-440); Red Cell Distribution Width 14.1 % (13.2-15.2)
--- NOTE | 2021-08-09 00:27 | XRay Report ---
CHEST 1 VIEW 08/08/2021 11:14 PM INDICATION / CLINICAL INFORMATION: Dyspnea. COMPARISON: Chest x-ray 06/09/2020 FINDINGS: SUPPORT DEVICES: None. HEART / MEDIASTINUM: No significant abnormality. LUNGS / PLEURA: No significant pulmonary or pleural abnormality. No pneumothorax. ADDITIONAL FINDINGS: No significant additional findings. IMPRESSION: 1. No acute findings. Signer Name: Brent Davis MD Signed: 08/09/2021 12:23 AM Workstation Name: [id number]
[2021-08-09 00:35] LABS: INR 0.98 (0.87-1.13)
[2021-08-09 00:41] LABS: Alanine Aminotransferase 10 units/L (7-56); Albumin 3.9 g/dL (3.9-5); Blood Urea Nitrogen 11 mg/dL (7-17); Calcium 9.7 mg/dL (8.4-10.2); Hemolysis Index 2
[2021-08-09 00:43] LABS: BUN/Creatinine Ratio 16
[2021-08-09 01:07] VITALS: BP 115/61
--- NOTE | 2021-08-09 11:11 | Electrocardiograph Report ---
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
== END 2021-08-09 02:15 | disposition home or self-care (01) ==
LOC: ED 22:26
DX: J44.1 Chronic obstructive pulmonary disease with (acute) exacerbation (principal); I11.0 Hypertensive heart disease with heart failure; E11.8 Type 2 diabetes mellitus with unspecified complications; Z98.890 Other specified postprocedural states; I50.9 Heart failure, unspecified
CPT/HCPCS: 36415; 71045; 80053; 83735; 84484; 85025; 85610; 93005; 94644; 96365; 96375; 99284; J2930; J3475; J7040

== ENCOUNTER 2022-01-02 23:04 | Inpatient (IN) | payer MEDICARE ==
[2022-01-02] MEDS ORDERED: IPRATROPIUM/ALBUTEROL SULFATE 3 ML AMPUL.NEB IH ONE (23:23)
[2022-01-02] MEDS ORDERED: IPRATROPIUM 0.02% NEBU 2.5 ML IH ONE (23:30)
[2022-01-02] MEDS ORDERED: ALBUTEROL 2.5 MG/3 ML NEBU IH ONE (23:30)
[2022-01-02] MEDS ORDERED: MAGNESIUM SULFATE 2 GM/50 ML BAG IV ONE (23:32)
--- NOTE | 2022-01-02 23:38 | Emergency Department Report ---
HPI - General Chief Complaint: Dyspnea/Respdistress Time Seen by Provider: 01/02/22 23:22 - HPI HPI: Room 2 The patient is a 66-year-old female present with chief complaint of shortness of breath. Patient states she has felt short of breath for the past 2 days mostly with exertion. Patient admits to two-pillow orthopnea and states for the past 2 days she has had to sleep sitting up. Patient states for the past 3 to 4 days she has had a cough occasionally productive of clear sputum. Patient denies history of fever. Patient states she has been vaccinated against Covid receiving her third Pfizer dose in September 2021. Patient has history of CHF and states that she was never placed on a diuretic. ED Past Medical Hx - Past Medical History Hx Hypertension: Yes Hx Congestive Heart Failure: Yes Hx Diabetes: ("MEDICATION INDUCED AT TIMES") Hx Asthma: Yes Hx COPD: Yes (No home O2) - Surgical History Additional Surgical History: THYROID CYST REMOVED. BILATERAL TUBAL LIGATION - Family History Family history: no significant - Social History Smoking Status: Current Every Day Smoker (2/3 pack/day) Substance Use Type: None (Denies illicit drug use) - Medications Home Medications: Home Medications Medication Instructions Recorded Confirmed Last Taken Type Amlodipine Besylate [Norvasc] 10 mg PO QDAY 12/12/19 12/12/19 Unknown History Aspirin [Aspirin BABY CHEW TAB] 81 mg PO QDAY 12/12/19 12/12/19 Unknown History AtorvaSTATin [Lipitor] 20 mg PO QHS 12/12/19 12/12/19 Unknown History Citalopram [Celexa] 20 mg PO QDAY 12/12/19 12/12/19 Unknown History Acetaminophen [Acetaminophen TAB] 650 mg PO Q4H PRN #15 tablet 12/15/19 Unknown Rx Citalopram [Celexa] 20 mg PO QDAY #15 tablet 12/15/19 Unknown Rx Pravastatin [Pravachol] 40 mg PO QHS #30 tablet 12/15/19 Unknown Rx lisinopriL [Zestril TAB] 5 mg PO QDAY #30 tablet 12/15/19 Unknown Rx Albuterol Sulfate [Proair 90 mcg IH Q4HR PRN #2 aer.pow.ba 09/09/21 Unknown Rx Respiclick] Fluticasone/Vilanterol [Breo 1 each IH QDAY #1 can 09/09/21 Unknown Rx Ellipta 200-25 Mcg INH] Ipratropium/Albuterol Sulfate 1 ampul IH Q6HR #120 ampul.neb 09/09/21 Unknown Rx [DUONEB *Not for PRN Use*] Montelukast [Singulair] 10 mg PO QHS #30 tablet 09/09/21 Unknown Rx predniSONE 1 dose PO QDAY 21 Days #48 tab 09/09/21 Unknown Rx ED Review of Systems ROS: Stated complaint: COPD FLARE Other details as noted in HPI Constitutional: denies: fever Eyes: denies: eye pain ENT: denies: throat pain Respiratory: cough, orthopnea, shortness of breath, SOB with exertion Cardiovascular: dyspnea on exertion, orthopnea. denies: chest pain Endocrine: no symptoms reported Gastrointestinal: denies: abdominal pain Genitourinary: denies: dysuria Musculoskeletal: denies: back pain Neurological: denies: headache Physical Exam - Physical Exam Vital Signs: Vital Signs 01/02/22 01/02/22 23:08 23:16 Temperature 98.1 F Pulse Rate 83 95 H Respiratory 28 H 36 H Rate Blood Pressure 124/58 136/71 O2 Sat by Pulse 97 96 Oximetry Physical Exam: GENERAL: The patient is well-developed well-nourished female lying on stretcher not appearing to be in acute distress. [] HEENT: Normocephalic. Atraumatic. Extraocular motions are intact. Patient has moist mucous membranes. NECK: Supple. Trachea midline CHEST/LUNGS: Diffuse wheezing. There is no respiratory distress noted. HEART/CARDIOVASCULAR: Regular. There is no tachycardia. There is no gallop rub or murmur. ABDOMEN: Abdomen is soft, nontender. Patient has normal bowel sounds. There is no abdominal distention. SKIN: There is no rash. There is trace bilateral pedal edema. There is no diaphoresis. NEURO: The patient is awake, alert, and oriented. The patient is cooperative. The patient has no focal neurologic deficits. The patient has normal speech. GCS 15 MUSCULOSKELETAL: There is no evidence of acute injury. ED Course Vital Signs 01/02/22 01/02/22 23:08 23:16 Temperature 98.1 F Pulse Rate 83 95 H Respiratory 28 H 36 H Rate Blood Pressure 124/58 136/71 O2 Sat by Pulse 97 96 Oximetry - Reevaluation(s) Reevaluation #1: 01/03/22 02:00 Patient states she feels improved however SPO2 89-90% on room air. Patient states she is not on home O2. Will admit for further management ED Medical Decision Making - Lab Data Result diagrams: 01/02/22 23:31 01/02/22 23:31 - Differential Diagnosis COPD exacerbation, CHF exacerbation, pneumonia, bronchitis Critical care attestation.: If time is entered above; I have spent that time in minutes in the direct care of this critically ill patient, excluding procedure time. ED Disposition Clinical Impression: COPD exacerbation, Hypoxia Disposition: 09 ADMITTED INPATIENT Is pt being admited?: Yes Does the pt Need Aspirin: Yes Condition: Fair Instructions: Chronic Obstructive Pulmonary Disease (ED) Time of Disposition: 02:01 (Hospitalist called (Dr Thompson))
[2022-01-02] MEDS: methylPREDNISolone Sod Succinate 125 MG/2 ML INJ IV ONE (23:50)
[2022-01-03 00:03] LABS: Basophils # (Auto) 0.1 K/mm3 (0.0-0.1); Basophils % (Auto) 1.2 % (0.0-1.8); Eosinophils # (Auto) 0.4 K/mm3 (0.0-0.4); Eosinophils % (Auto) 7.4 % (0.0-4.3); Hematocrit 39.3 % (30.3-42.9); Hemoglobin 12.4 gm/dl (10.1-14.3); Lymphocytes # (Auto) 2.4 K/mm3 (1.2-5.4); Lymphocytes % (Auto) 39.1 % (13.4-35.0); Mean Corpuscular HGB Conc 31 % (30-34); Mean Corpuscular Volume 82 fl (79-97); Monocytes # (Auto) 0.4 K/mm3 (0.0-0.8); Monocytes % (Auto) 6.7 % (0.0-7.3); Platelet Count 315 K/mm3 (140-440); Red Cell Distribution Width 15.5 % (13.2-15.2)
[2022-01-03 00:11] LABS: Blood Urea Nitrogen 7 mg/dL (7-17); Calcium 9.9 mg/dL (8.4-10.2); Hemolysis Index 39
[2022-01-03 00:11] LABS: Creatine Kinase MB 2.5 ng/mL (0.0-4.0)
[2022-01-03 00:12] LABS: BUN/Creatinine Ratio 12
--- NOTE | 2022-01-03 00:34 | XRay Report ---
CHEST 1 VIEW INDICATION / CLINICAL INFORMATION: Shortness of breath. COMPARISON: Chest x-ray 09/07/2021 FINDINGS: SUPPORT DEVICES: None. HEART / MEDIASTINUM: No significant abnormality. LUNGS / PLEURA: No significant pulmonary or pleural abnormality. No pneumothorax. ADDITIONAL FINDINGS: No significant additional findings. IMPRESSION: 1. No active cardiopulmonary disease. Signer Name: Harpal Martinez II, MD Signed: 01/03/2022 12:30 AM Workstation Name: [id number]
[2022-01-03 00:42] LABS: Bacteria,Urine 1+ /HPF (Negative); Bilirubin,Urine NEG (Negative); Blood,Urine SM (Negative); Color,Urine Straw (Yellow); Protein,Urine <15 mg/dL mg/dL (Negative); Urobilinogen,Urine < 2.0 mg/dL (<2.0)
[2022-01-03] MEDS ORDERED: MAGNESIUM HYDROXIDE (MOM) ORAL LIQD UDC PO PRN (03:12)
[2022-01-03] MEDS ORDERED: ACETAMINOPHEN 325 MG TAB PO PRN ×2 (03:12→09:34)
[2022-01-03] MEDS ORDERED: ONDANSETRON 4 MG/2 ML INJ IV PRN (03:12)
[2022-01-03] MEDS ORDERED: MORPHINE 2 MG/1 ML INJ IV PRN (03:12)
[2022-01-03] MEDS ORDERED: MORPHINE 4 MG/1 ML INJ IV PRN (03:12)
--- NOTE | 2022-01-03 03:26 | History and Physical Report ---
History of Present Illness Date of examination: 01/03/22 Date of admission: 01/03/2022 Chief complaint: Shortness of Breath History of present illness: 66-year-old female with known history of hypertension, congestive heart failure, COPD and asthma presenting to the emergency room today complaining of shortness of breath. Shortness of breath is said to have been ongoing for the past 2 days. Shortness of breath is also worse on exertion. She denies any chest pearl n, no fever or chills, no nausea vomiting no abdominal pain. Patient denies any headache or dizziness and also denies any diaphoresis. She has had some occasional cough which is productive of some clear sputum. She denies any sick contacts and no recent travel. Denies any contact with anyone with COVID-19. She has been fully vaccinated against COVID-19. She indicates she has been diagnosed with CHF but has never been placed on diuretics. Upon arrival in the emergency room, she was found to be wheezing and given some nebulizing treatments and IV steroid with significant improvement. Work-up in the emergency room today, chest x-ray reveals no active cardiopulmonary disease. Labs were unremarkable. Patient being admitted for COPD exacerbation. Past History Past Medical History: COPD, diabetes, heart failure, hypertension Past Surgical History: Other (Thyroid cyst surgery, tubal ligation) Social history: no significant social history Family history: hypertension Medications and Allergies Allergies Allergy/AdvReac Type Severity Reaction Status Date / Time No Known Allergies Allergy Verified 06/12/15 16:48 Home Medications Medication Instructions Recorded Confirmed Last Taken Type Amlodipine Besylate [Norvasc] 10 mg PO QDAY 12/12/19 12/12/19 Unknown History Aspirin [Aspirin BABY CHEW TAB] 81 mg PO QDAY 12/12/19 12/12/19 Unknown History AtorvaSTATin [Lipitor] 20 mg PO QHS 12/12/19 12/12/19 Unknown History Citalopram [Celexa] 20 mg PO QDAY 12/12/19 12/12/19 Unknown History Acetaminophen [Acetaminophen TAB] 650 mg PO Q4H PRN #15 tablet 12/15/19 Unknown Rx Citalopram [Celexa] 20 mg PO QDAY #15 tablet 12/15/19 Unknown Rx Pravastatin [Pravachol] 40 mg PO QHS #30 tablet 12/15/19 Unknown Rx lisinopriL [Zestril TAB] 5 mg PO QDAY #30 tablet 12/15/19 Unknown Rx Albuterol Sulfate [Proair 90 mcg IH Q4HR PRN #2 aer.pow.ba 09/09/21 Unknown Rx Respiclick] Fluticasone/Vilanterol [Breo 1 each IH QDAY #1 can 09/09/21 Unknown Rx Ellipta 200-25 Mcg INH] Ipratropium/Albuterol Sulfate 1 ampul IH Q6HR #120 ampul.neb 09/09/21 Unknown Rx [DUONEB *Not for PRN Use*] Montelukast [Singulair] 10 mg PO QHS #30 tablet 09/09/21 Unknown Rx predniSONE 1 dose PO QDAY 21 Days #48 tab 09/09/21 Unknown Rx Active Meds: Active Medications Acetaminophen (Acetaminophen 325 Mg Tab) 650 mg PO Q4H PRN PRN Reason: Pain MILD(1-3)/Fever >100.5/BURNHAM Albuterol/Ipratropium (Ipratropium/Albuterol Sulfate 3 Ml Ampul.Neb) 1 ampul IH Q4HRT JESSIE Dextrose (Dextrose 50% In Water (25gm) 50 Ml Syringe) 50 ml IV Q30MIN PRN; Protocol PRN Reason: Hypoglycemia Heparin Sodium (Porcine) (Heparin 5,000 Unit/1 Ml Vial) 5,000 unit SUB-Q Q8HR JESSIE Insulin Human Lispro (Insulin Lispro 100 Unit/Ml) 0 unit SUB-Q ACHS JESSIE; Protocol Magnesium Hydroxide (Magnesium Hydroxide (Mom) Oral Liqd Udc) 30 ml PO Q4H PRN PRN Reason: Constipation Methylprednisolone Sodium Succinate (Methylprednisolone Sod Succinate 40 Mg/1 Ml Inj) 40 mg IV Q8HR JESSIE Morphine Sulfate (Morphine 2 Mg/1 Ml Inj) 2 mg IV Q4H PRN PRN Reason: Pain, Moderate (4-6) Morphine Sulfate (Morphine 4 Mg/1 Ml Inj) 4 mg IV Q4H PRN PRN Reason: Pain , Severe (7-10) Ondansetron HCl (Ondansetron 4 Mg/2 Ml Inj) 4 mg IV Q8H PRN PRN Reason: Nausea And Vomiting Sodium Chloride (Sodium Chloride 0.9% 10 Ml Flush Syringe) 10 ml IV BID JESSIE Sodium Chloride (Sodium Chloride 0.9% 10 Ml Flush Syringe) 10 ml IV PRN PRN PRN Reason: LINE FLUSH Review of Systems Constitutional: no fever, no chills Ears, nose, mouth and throat: no nasal congestion, no sore throat Cardiovascular: no chest pain, no palpitations Respiratory: cough, shortness of breath, wheezing Gastrointestinal: no abdominal pain, no nausea, no vomiting, no diarrhea Genitourinary Female: no pelvic pain, no flank pain, no dysuria, no hematuria Musculoskeletal: no neck pain, no low back pain Integumentary: no rash, no pruritis Neurological: no headaches, no confusion Psychiatric: no anxiety, no depression Exam - Constitutional Vitals: Temp Pulse Resp BP Pulse Ox 97.8 F 77 19 121/66 98 01/03/22 00:22 01/03/22 00:15 01/03/22 00:15 01/03/22 00:15 01/03/22 00:15 General appearance: Present: no acute distress, well-nourished - EENT Eyes: Present: PERRL, EOM intact. Absent: scleral icterus ENT: hearing intact, clear oral mucosa, dentition normal - Neck Neck: Present: supple, normal ROM - Respiratory Respiratory effort: normal Respiratory: bilateral: wheezing - Cardiovascular Rhythm: regular Heart Sounds: Present: S1 & S2. Absent: gallop, systolic murmur, diastolic murmur, rub, click - Extremities Extremities: no ischemia, pulses intact, pulses symmetrical, No edema, normal temperature, normal color, Full ROM Peripheral Pulses: within normal limits - Abdominal General gastrointestinal: Present: soft, non-tender, non-distended, normal bowel sounds. Absent: mass - Integumentary Integumentary: Present: clear, warm, dry, normal turgor. Absent: rash - Musculoskeletal Musculoskeletal: strength equal bilaterally - Psychiatric Psychiatric: appropriate mood/affect, intact judgment & insight, memory intact, cooperative - Neurologic Neurologic: CNII-XII intact, no focal deficits, moves all extremities Results - Labs CBC & Chem 7: 01/02/22 23:31 01/02/22 23:31 Labs: Abnormal lab results 01/02/22 01/02/22 Range/Units 23:31 23:39 MCH 26 L (28-32) pg RDW 15.5 H (13.2-15.2) % Lymph % (Auto) 39.1 H (13.4-35.0) % Eos % (Auto) 7.4 H (0.0-4.3) % Total Creatine Kinase 137 H (30-135) units/L Assessment and Plan - Patient Problems (1) COPD exacerbation Current Visit: No Status: Acute Plan to address problem: Patient needed and placed on nebulizing treatments and IV steroid. We will keep O2 saturation greater or equal to 92%. (2) Diabetes Current Visit: No Status: Acute Plan to address problem: Patient placed on sliding scale insulin. We will monitor Accu-Cheks closely. (3) Hypertension Current Visit: No Status: Acute Qualifiers: Hypertension type: primary hypertension Qualified Code(s): I10 - Essential (primary) hypertension Plan to address problem: We will resume routine home medications and monitor vital signs closely. (4) DVT prophylaxis Current Visit: No Status: Acute Plan to address problem: Patient placed on subcutaneous heparin. (5) Full code status Current Visit: No Status: Acute Plan to address problem: Patient is full code.
[2022-01-03] MEDS ORDERED: DEXTROSE 10% *Hypoglycemia IV PRN (03:45)
[2022-01-03] MEDS: IPRATROPIUM/ALBUTEROL SULFATE 3 ML AMPUL.NEB IH SCH ×4 (05:10→19:58)
[2022-01-03] MEDS: HEPARIN 5,000 UNIT/1 ML VIAL SUB-Q SCH ×3 (05:31→22:24)
[2022-01-03] MEDS: methylPREDNISolone Sod Succinate 40 MG/1 ML INJ IV SCH ×3 (05:31→22:18)
[2022-01-03] MEDS: methylPREDNISolone Sod Succinate 125 MG/2 ML INJ IV ONE (06:48)
--- NOTE | 2022-01-03 08:05 | Event Note ---
Date: 01/03/22 This is a follow-up from an admission earlier this morning. Patient seen and examined. We will continue to plan as outlined in the H&P. Continue bronchodilators/nebulizers and IV steroids. Total visit time equals 32 minutes with greater than 50% spent on coordination of care and counseling
[2022-01-03] MEDS: INSULIN LISPRO 100 UNIT/ML SUB-Q SCH ×4 (08:56→22:16)
[2022-01-03] MEDS ORDERED: ALBUTEROL 2.5 MG/3 ML NEBU IH PRN (09:28)
[2022-01-03] MEDS ORDERED: PEG OU PRN (09:34)
[2022-01-03] MEDS ORDERED: [UNRECOGNIZED DRUG - OTHER] OU PRN (09:34)
[2022-01-03] MEDS ORDERED: HYPROMELLOSE OU PRN (09:34)
[2022-01-03] MEDS ORDERED: GLYCERIN OU PRN (09:34)
[2022-01-03] MEDS ORDERED: HYPROMELLOSE 0.5% OPHTH SOLN 15 ML OU PRN (11:00)
[2022-01-03] MEDS ORDERED: IPRATROPIUM/ALBUTEROL SULFATE 3 ML AMPUL.NEB IH SCH (12:00)
[2022-01-03] MEDS: amLODIPine 10 MG TAB PO SCH (13:16)
[2022-01-03] MEDS: CITALOPRAM 20 MG TAB PO SCH (13:17)
[2022-01-03] MEDS: LISINOPRIL 5 MG TAB PO SCH (13:17)
[2022-01-03] MEDS: ASPIRIN 81 MG TAB CHEW PO SCH (13:17)
[2022-01-03] MEDS: ARFORMOTEROL 15 MCG/2 ML NEBU IH SCH (19:55)
[2022-01-03] MEDS: BUDESONIDE 0.5 MG/2 ML NEBU IH SCH (19:55)
[2022-01-03] MEDS ORDERED: MONTELUKAST 10 MG TAB PO SCH (22:00)
[2022-01-04] MEDS: IPRATROPIUM/ALBUTEROL SULFATE 3 ML AMPUL.NEB IH SCH ×2 (02:40→08:53)
[2022-01-04 05:06] LABS: Basophils % (Auto) 0.4 % (0.0-1.8); Hematocrit 37.1 % (30.3-42.9); Hemoglobin 11.6 gm/dl (10.1-14.3); Lymphocytes # (Auto) 1.2 K/mm3 (1.2-5.4); Lymphocytes % (Auto) 9.8 % (13.4-35.0); Mean Corpuscular HGB Conc 31 % (30-34); Mean Corpuscular Volume 81 fl (79-97); Monocytes # (Auto) 0.3 K/mm3 (0.0-0.8); Monocytes % (Auto) 2.5 % (0.0-7.3); Platelet Count 302 K/mm3 (140-440); Red Blood Count 4.57 M/mm3 (3.65-5.03); Red Cell Distribution Width 15.6 % (13.2-15.2)
[2022-01-04 05:23] LABS: Blood Urea Nitrogen 18 mg/dL (7-17); Calcium 9.8 mg/dL (8.4-10.2); Hemolysis Index 1
[2022-01-04] MEDS: HEPARIN 5,000 UNIT/1 ML VIAL SUB-Q SCH (05:32)
[2022-01-04 05:34] LABS: BUN/Creatinine Ratio 30
[2022-01-04] MEDS: methylPREDNISolone Sod Succinate 40 MG/1 ML INJ IV SCH (05:34)
[2022-01-04] MEDS ORDERED: cefTRIAXone/NS 1 GM/50 ML 1 GM/50 ML BAG IV SCH (08:00)
[2022-01-04] MEDS: BUDESONIDE 0.5 MG/2 ML NEBU IH SCH (08:52)
[2022-01-04] MEDS: ARFORMOTEROL 15 MCG/2 ML NEBU IH SCH (08:52)
[2022-01-04] MEDS: ASPIRIN 81 MG TAB CHEW PO SCH (09:30)
[2022-01-04] MEDS: CITALOPRAM 20 MG TAB PO SCH (09:30)
[2022-01-04] MEDS: LISINOPRIL 5 MG TAB PO SCH (09:31)
[2022-01-04] MEDS: INSULIN LISPRO 100 UNIT/ML SUB-Q SCH ×2 (09:31→12:31)
[2022-01-04] MEDS: amLODIPine 10 MG TAB PO SCH (09:31)
[2022-01-04] MEDS ORDERED: predniSONE 20 MG TAB PO SCH (10:00)
--- NOTE | 2022-01-04 10:23 | Electrocardiograph Report ---
[facility] Test Date: 2022-01-03 Test Time: 07:30:27 Pat Name: YESSENIA SCHUMACHER Department: Room: A373 1 Gender: F Running Specialist: GAL : 1955 Requested By: TASH SEGURA Order Number: [id number] Reading MD: Donell Higgins Measurements Intervals [place] Rate: 64 P: 71 NV: 201 QRS: 56 QRSD: 69 T: 49 QT: 432 QTc: 446 Interpretive Statements Sinus rhythm Compared to ECG 09/07/2021 16:54:07 No significant changes Electronically Signed On 01-04-2022 10:23:26 EST by Donell Higgins
--- NOTE | 2022-01-04 10:59 | Discharge Summary ---
Providers - Providers Date of Admission: 01/03/22 03:14 Date of discharge: 01/04/22 Attending physician: STEVEN MAJOR MD 01/03/22 03:15 Consult to Dietitian/Nutrition [CONS] Routine Physician Instructions: Reason For Exam: Reason for Consult: Diet education Primary care physician: BRANDON GUTIERREZ Hospitalization Reason for admission: Acute on chronic COPD exacerbation Condition: Fair Pertinent studies: Reviewed. Procedures: None. Hospital course: Patient is a 66-year-old female past medical history of hypertension, congestive heart failure, asthma, and COPD who presented for worsening shortness of breath over the previous 48 hours (prior to ED admission) that was found to be secondary to acute on chronic COPD exacerbation. The patient endorses being compliant with her medications and following up with her primary care provider regularly. The patient endorses receiving her [employer] COVID-19 vaccination x3. On presentation, the patient was found to be wheezing and requiring nebulizers, IV steroids, and supplemental oxygen. Patient does not require supplemental oxygen at home. The patient has since been weaned to room air and is saturating greater than 89% on ambulation and greater than 94% at rest. The patient will be discharging home with oral steroids and antibiotics to be completed. Patient expresses understanding. Patient is medically clear for discharge. Disposition: 01 HOME / SELF CARE / HOMELESS Final Discharge Diagnosis (Prints w/discharge instructions): Acute on chronic COPD exacerbation, hypertension, hyperglycemia, congestive heart failure Time spent for discharge: 45 min Core Measure Documentation - Palliative Care Palliative Care/ Comfort Measures: Not Applicable - Core Measures Any of the following diagnoses?: none Exam - Constitutional Vitals: Temp Pulse Resp BP Pulse Ox 97.9 F 72 18 122/72 97 01/03/22 13:13 01/04/22 08:53 01/04/22 08:53 01/03/22 13:17 01/04/22 08:56 General appearance: Present: no acute distress, well-nourished - EENT Eyes: Present: PERRL, EOM intact ENT: hearing intact, clear oral mucosa, dentition normal - Neck Neck: Present: supple, normal ROM - Respiratory Respiratory effort: normal Respiratory: bilateral: CTA - Cardiovascular Rhythm: regular Heart Sounds: Present: S1 & S2 - Extremities Extremities: no ischemia, pulses intact, pulses symmetrical, No edema, normal temperature, normal color, Full ROM Peripheral Pulses: within normal limits - Abdominal General gastrointestinal: Present: soft, non-tender, non-distended, normal bowel sounds Female genitourinary: Present: deferred - Rectal Rectal Exam: deferred - Integumentary Integumentary: Present: clear, warm, dry - Musculoskeletal Musculoskeletal: strength equal bilaterally - Psychiatric Psychiatric: appropriate mood/affect, intact judgment & insight, memory intact, cooperative - Neurologic Neurologic: CNII-XII intact, moves all extremities - Allied Health Allied health notes reviewed: nursing Plan Activity: no restrictions Diet: low salt Additional Instructions: Patient is a 66-year-old female past medical history of hypertension, congestive heart failure, asthma, and COPD who presented for worsening shortness of breath over the previous 48 hours (prior to ED admission) that was found to be secondary to acute on chronic COPD exacerbation. The patient endorses being compliant with her medications and following up with her primary care provider regularly. The patient endorses receiving her Pfizer COVID-19 vaccination x3. On presentation, the patient was found to be wheezing and requiring nebulizers, IV steroids, and supplemental oxygen. Patient does not require supplemental oxygen at home. The patient has since been weaned to room air and is saturating greater than 89% on ambulation and greater than 94% at rest. The patient will be discharging home with oral steroids and antibiotics to be completed. Patient expresses understanding. Patient is medically clear for discharge. Care Plan Goals: Patient is medically cleared for discharge. Assessment: Patient is a 66-year-old female past medical history of hypertension, congestive heart failure, asthma, and COPD who presented for worsening shortness of breath over the previous 48 hours (prior to ED admission) that was found to be secondary to acute on chronic COPD exacerbation. The patient endorses being compliant with her medications and following up with her primary care provider regularly. The patient endorses receiving her Pfizer COVID-19 vaccination x3. On presentation, the patient was found to be wheezing and requiring nebulizers, IV steroids, and supplemental oxygen. Patient does not require supplemental oxygen at home. The patient has since been weaned to room air and is saturating greater than 89% on ambulation and greater than 94% at rest. The patient will be discharging home with oral steroids and antibiotics to be completed. Patient expresses understanding. Patient is medically clear for discharge. Follow up with: BRANDON GUTIERREZ MD [Primary Care Provider] - 7 Days Prescriptions: predniSONE [Deltasone] 40 mg PO QDAY #6 tablet Azithromycin [Zithromax TAB] 500 mg PO QDAY #4 tab
[2022-01-04 11:09] VITALS: BP 110/55
== END 2022-01-04 12:41 | disposition home or self-care (01) | DRG 192 ==
LOC: ED 23:04 → 3A 01-03 03:14
PROVIDERS: ADMIT Internal Medicine Geriatric Medicine; ATTEND Student in an Organized Health Care Education/Training Program
DX: J44.1 Chronic obstructive pulmonary disease with (acute) exacerbation (principal); I11.0 Hypertensive heart disease with heart failure; I50.9 Heart failure, unspecified; Z98.51 Tubal ligation status; F17.200 Nicotine dependence, unspecified, uncomplicated; E11.65 Type 2 diabetes mellitus with hyperglycemia; Z79.82 Long term (current) use of aspirin; Z82.49 Family history of ischemic heart disease and other diseases of the circulatory system; Z79.899 Other long term (current) drug therapy
CPT/HCPCS: 36415; 71045; 80048; 81001; 82140; 82550; 82553; 82962; 83880; 85025; 87040; 93005; 94640; 94644; 94760; G0378; Q9967; J1644; J1815; J2920; J2930; J3475